=== PATIENT | male | born 1970 | race Caucasian/White ===

== ENCOUNTER 2024-05-03 09:20 | Inpatient (IN) | payer OTHER, MEDICAID, SELFPAY ==
[2024-05-03] VITALS (9 sets, daily range): BP systolic 128–156; BP diastolic 69–91; PULSE 87–101; RESP 17–18; TEMP 36.6–37.2; O2SAT 96–98; BMI 29.0; BMI 29.3
--- NOTE | 2024-05-03 09:50 | ED_ITS ---
HPI - Skin/Abscess/Foreign Bdy 2 General: Chief complaint: Skin/Abscess/Foreign Body Stated complaint: insect bite infection Time Seen by Provider: 05/03/24 09:40 History of Present Illness: 53-year-old male presents emergency room with a rash. Earlier this week he was bitten by an insect became red and inflamed he was seen at walk-in clinic and started on Bactrim. Despite this it continues to get worse. Painful burning rash concentrated in the left lateral chest wall in the posterior calf. Rashes disseminated throughout the trunk as well but not as concentrated as the above- mentioned areas. Patient denies any fever sweats chills nausea or vomiting. Associated symptoms: Reports fever(s); Deny chills Related Data Allergies Allergy/AdvReac Type Severity Reaction Status Date / Time Penicillins Allergy ALGY-Hives Verified 05/03/24 09:36 Review of Systems 2 Const: Reports: fever(s); Denies: chills Card: Denies: chest pain Resp: Denies: dyspnea GI: Denies: abdominal pain : Denies: dysuria, urinary frequency or urinary urgency Musc: Denies: neck pain or back pain Skin/Breast: Denies: rash Physical Exam 2 Const: COMMON NORMALS: no acute distress GENERAL APPEARANCE: cooperative and comfortable ORIENTATION/CONSCIOUSNESS: Yes awake, Yes oriented to person, Yes oriented to place and Yes oriented to time HENMT: COMMON NORMALS: normocephalic, atraumatic and hearing grossly normal bilaterally HEAD & SCALP: normocephalic and atraumatic Resp: COMMON NORMALS: normal respiratory effort, No retractions, No use of accessory muscles and clear to auscultation bilaterally AUSCULTATION: clear to auscultation bilaterally Cardio: COMMON NORMALS: regular rhythm and No murmurs present (Cardio) R ATE: tachycardic RHYTHM: regular rhythm GI: COMMON NORMALS: Soft to palpation and No hepatosplenomegaly present A USCULTATION: Yes normoactive bowel sounds PALPATION: Yes Soft to palpation, No Tenderness to palpation present (GI), No Guarding due to palpation present (GI) and Yes No hepatosplenomegaly present Extremity: COMMON NORMALS: normal to inspection, capillary refill normal, no clubbing, cyanosis or edema, no calf tenderness and no pedal edema Neuro: SENSORIUM/ORIENTATION: Yes oriented to person, Yes oriented to place and Yes oriented to time Skin: OTHER: Reddened micropapular rash disseminated. It is most concentrated in the left axillary region and on the posterior aspect of the left calf. The area on the calf has vesicular changes to it. Course 2 Vital Signs: Vital signs: Vital Signs Temperature 97.9 F 05/03/24 09:32 Pulse Rate 91 05/03/24 11:41 Respiratory Rate 18 05/03/24 09:32 Blood Pressure 137/71 05/03/24 11:41 Pulse Oximetry 97 05/03/24 11:41 Oxygen Delivery Me thod Room Air 05/03/24 09:32 MDM - Skin/Abscess/Foreign Bdy Medicial Decision Making Mild acute kidney injury and staphylococcal skin infection failing Bactrim. He has a history hypertension he is also on lisinopril and a combination of Bactrim and lisinopril no worsening to his kidney function. Patient given IV fluids started on vancomycin will admit discussed with hospitalist. Lab Data 05/03/24 09:40 05/03/24 09:40 Laboratory Results WBC 10.54 10^3/uL (3.29-11.43) 05/03/24 09:40 RBC 4.22 10^6/uL (3.85-5.65) 05/03/24 09:40 Hgb 13.10 g/dL (11.27-16.99) 05/03/24 09:40 Hct 39.1 % (37-53) 05/03/24 09:40 MCV 92.7 fl (82-101) 05/03/24 09:40 MCH 31.0 pg (27-33) 05/03/24 09:40 MCHC 33.5 g/dL (30-55) 05/03/24 09:40 RDW 13.1 % (12.1-15.1) 05/03/24 09:40 Plt Count 268 10^3/cmm (157-399) 05/03/24 09:40 MPV 9.9 fL (7.4-10.4) 05/03/24 09:40 Neut % (Auto) 78.9 % 05/03/24 09:40 Lymph % (Auto) 8.4 % 05/03/24 09:40 [place] % (Auto) 6.6 % 05/03/24 09:40 Eos % (Auto) 4.7 % 05/03/24 09:40 Baso % (Auto) 0.3 % 05/03/24 09:40 Neut # (Auto) 8.30 10^3/uL (1.8-7.7) H 05/03/24 09:40 Lymph # (Auto) 0.9 10^3/uL (0.8-4.8) 05/03/24 09:40 [place] # (Auto) 0.7 10^3/uL (0.2-0.9) 05/03/24 09:40 Eos # (Auto) 0.5 10^3/uL (0.0-0.8) 05/03/24 09:40 Baso # (Auto) 0.0 10^3/uL (0.0-0.1) 05/03/24 09:40 Nucleated RBC % (auto) 0 % 05/03/24 09:40 Nucleated RBCs # 0.0 /100WBC 05/03/24 09:40 ESR 33 mm/hr (0-10) H 05/03/24 09:40 Sodium 138 mmol/L (136-145) 05/03/24 09:40 Potassium 4.6 mmol/L (3.5-5.1) 05/03/24 09:40 Chloride 103 mmol/L (98-107) 05/03/24 09:40 Carbon Dioxide 16 mmol/L (22-29) L 05/03/24 09:40 Anion Gap 23.6 (5-19) H 05/03/24 09:40 BUN 23 mg/dL (6-20) H 05/03/24 09:40 Creatinine 2.1 mg/dL (0.7-1.2) H 05/03/24 09:40 GFR Calculation 33.2 mL/min (90-130) L 05/03/24 09:40 Glucose 92 mg/dL (65-115) 05/03/24 09:40 Calculated Osmolality 289 mOsm/kg (285-295) 05/03/24 09:40 Lactic Acid 1.3 mmol/L (0.5-2.2) 05/03/24 09:40 Calcium 9.6 mg/dL (8.5-10.5) 05/03/24 09:40 Total Bilirubin 0.6 mg/dL (0.15-1.2) 05/03/24 09:40 AST 108 U/L (0-40) H 05/03/24 09:40 ALT 169 U/L (0-41) H 05/03/24 09:40 Alkaline Phosphatase 176 U/L (40-130) H 05/03/24 09:40 Creatine Kinase 192 U/L (39-308) 05/03/24 09:40 Total Protein 8.3 g/dL (6.6-8.7) 05/03/24 09:40 Albumin 4.4 g/dL (3.5-5.2) 05/03/24 09:40 Globulin 3.9 g/dL (1.3-4.6) 05/03/24 09:40 Procalcitonin 0.26 ng/mL (0-0.5) 05/03/24 09:40 All radiology interpretation(s) finalized by discharge Discharge Plan Discharge Patient Disposition: Admitted As Inpatient Admit Provider: Ibrahima Ruiz Clinical Impression: Cellulitis, SILVERIO (acute kidney injury) Condition: Stable Coding Level of Care Code ED Director Of Search Engine Marketing for Ghulam Osborne
[2024-05-03 09:57] LABS: Basophils % 0.3 %; Eosinophils # 0.5 10^3/uL (0.0-0.8); Eosinophils % 4.7 %; Hematocrit 39.1 % (37-53); Lymphocytes # 0.9 10^3/uL (0.8-4.8); Lymphocytes % 8.4 %; Mean Corpuscular HGB Conc 33.5 g/dL (30-55); Mean Corpuscular Volume 92.7 fl (82-101); Mean Platelet Volume 9.9 fL (7.4-10.4); Monocytes # 0.7 10^3/uL (0.2-0.9); Monocytes % 6.6 %; Neutrophils % 78.9 %; Nucleated Red Blood Cells % 0 %; Platelet Count 268 10^3/cmm (157-399); Red Blood Count 4.22 10^6/uL (3.85-5.65); Red Cell Distribution Width 13.1 % (12.1-15.1); White Blood Count 10.54 10^3/uL (3.29-11.43)
[2024-05-03 10:11] LABS: Alanine Aminotransferase 169 U/L (0-41); Albumin Level 4.4 g/dL (3.5-5.2); Alkaline Phosphatase 176 U/L (40-130); Blood Urea Nitrogen 23 mg/dL (6-20); Calcium 9.6 mg/dL (8.5-10.5); Carbon Dioxide 16 mmol/L (22-29); Chloride 103 mmol/L (98-107); Globulin 3.9 g/dL (1.3-4.6); Glomerular Filtration Rate 33.2 mL/min (90-130); Glucose 92 mg/dL (65-115); Osmolality Calculated 289 mOsm/kg (285-295); Sodium 138 mmol/L (136-145); Total Bilirubin 0.6 mg/dL (0.15-1.2); Total Protein 8.3 g/dL (6.6-8.7)
[2024-05-03 10:12] LABS: Lactic Sepsis W/Reflex 1.3 mmol/L (0.5-2.2)
[2024-05-03] MEDS: vancomycin 1,000 MG in sodium chloride 0.9% 250 ML 250 MG IV (10:17)
[2024-05-03] MEDS: sodium chloride 0.9% 1,000 ML 999 ML IV ×2 (10:17→11:20)
[2024-05-03 10:18] LABS: Anion Gap 23.6 (5-19); Aspartate Amino Transferase 108 U/L (0-40); Potassium 4.6 mmol/L (3.5-5.1)
--- NOTE | 2024-05-03 11:03 | USR_ITS ---
PROCEDURE INFORMATION: Exam: US Duplex Left Lower Extremity Veins, Limited Exam date and time: 05/03/2024 2:33 PM Age: 53 years old Clinical indication: Edema, localized; Lower extremity, left; Additional info: Swelling TECHNIQUE: Imaging protocol: Real-time duplex ultrasound of the left extremity with 2-D may scale, color Doppler flow and spectral waveform analysis including responses to compression and other maneuvers (when performed) with image documentation. Limited exam focused on the left lower extremity veins. COMPARISON: No relevant prior studies available. FINDINGS: Left deep veins: Unremarkable. The common femoral, femoral, proximal profunda femoral and popliteal veins are patent without thrombus. Normal Doppler waveforms. Normal compressibility and/or augmentation response. Superficial veins: Greater saphenous vein at the saphenofemoral junction is patent without thrombus. Soft tissues: Unremarkable. US/CV venous duplex [facility] [id number] IMPRESSION: No evidence of deep vein thrombosis.
[2024-05-03 11:29] LABS: Erythrocyte Sedimentation Rate 33 mm/hr (0-10)
[2024-05-03 11:33] LABS: Creatine Phosphokinase 192 U/L (39-308)
[2024-05-03 11:39] LABS: Procalcitonin 0.26 ng/mL (0-0.5)
--- NOTE | 2024-05-03 12:11 | USR_ITS ---
PROCEDURE INFORMATION: Exam: US Left Limited Joint or Other Non-Vascular Extremity Structure Exam date and time: 05/03/2024 2:43 PM Age: 53 years old Clinical indication: Swelling; Calf; Left; Additional info: Left calf, look for abscess TECHNIQUE: Imaging protocol: US left limited joint or other nonvascular extremity structure. Real-time ultrasound with image documentation. COMPARISON: [place] [id number] 05/03/2024 2:33 PM FINDINGS: Soft tissues: Unremarkable. No loculated collections. Other findings: Examination of the left calf demonstrates subcutaneous edema with no evidence of soft tissue mass or fluid collection. US/US soft tissue/extremity [id number] IMPRESSION: No abscess noted
--- NOTE | 2024-05-03 12:11 | PM.HP ---
Providers/Chief Complaint Admitting Physician: Ibrahima Ruiz MD Chief Complaint: insect bite infection History of Present Illness Cory Mccarthy is a 53 year old male with a past medical history of hypertension, hyperlipidemia,, GERD, who presents [facility] for a rash, pain, after spider bite. Patient tells me that earlier on this week, he had a bug bite, on his left chest/flank, it was erythematous, had slight drainage, so he presented to his walk-in clinic and was placed on Bactrim. He tells me that the rash was pruritic painful, burning. But the rash on his left lateral chest mostly has resolved, but now what he is developed is more than diffuse disseminated rash, on his abdomen, on his back, bilateral legs,. Over the last 24 hours he has developed a dense rash, with erythema, swelling, tenderness, over his left calf. Denies any recent injuries to his left calf. No recent travel. He is not exactly sure which bug bit him, he is not sure if if it was a brown recluse spider bite or a black spider, or a tick bite. Does report fatigue, malaise, chills, diffuse pain Review of Systems Const: Reports: body aches, fatigue and malaise Card: Denies: chest pain Resp: Denies: dyspnea Neuro: Denies: headache(s) or numbness in extremities Medications/Allergies Allergies Allergy/AdvReac Type Severity Reaction Status Date / Time Penicillins Allergy ALGY-Hives Verified 05/03/24 09:36 Vitals/I&O/Wt Last Vital Signs Temp 97.9 F 05/03/24 09:32 Pulse 91 05/03/24 11:41 Resp 18 05/03/24 09:32 BP 137/71 05/03/24 11:41 Pulse Ox 97 05/03/24 11:41 O2 Del Method Room Air 05/03/24 09:32 05/02/24 05/03/24 05/03/24 22:59 06:59 14:59 Intake Total 2064.85 / 2064.85 Balance 2064. / 2064. Weight last 48 hrs Weight 81.647 kg Physical Exam Const: COMMON NORMALS: no acute distress and patient oriented x3 HENMT: COMMON NORMALS: normocephalic HEAD & SCALP: normocephalic Neck/C-Spine: COMMON NORMALS: no JVD Resp: COMMON NORMALS: normal respiratory effort, No retractions, No use of accessory muscles and clear to auscultation bilaterally AUSCULTATION: clear to auscultation bilaterally Cardio: COMMON NORMALS: no JVD, regular rate, regular rhythm, S1 normal heart sound present and S2 normal heart sound present RATE: regular rate RHYTHM: regular rhythm HEART SOUNDS: S1 normal heart sound present and S2 normal heart sound present GI: COMMON NORMALS: Normal to inspection, nondistended, normoactive bowel sounds present, Soft to palpation and non-tender Extremity: COMMON NORMALS: no pedal edema Neuro: COMMON NORMALS: patient oriented x3, CN's II-XII intact bilaterally, moves all extremities and no focal motor deficits Psych: COMMON NORMALS: mental status grossly normal Skin: OTHER: Rash, left chest: Measuring 1 x 1 cm, slight erythema slight tenderness Diffuse maculopapular rash, nonblanching, abdomen, back, bilateral lower extremity Left calf erythema, swelling, tenderness, throughout the calf, poorly demarcated borders, maculopapular, with papular features that have white tipped, nondraining Data 05/03/24 09:40 05/03/24 09:40 Micro: Microbiology 05/03/24 09:40 Blood Culture - Preliminary Blood SPECIMEN COLLECTED 05/03/24 09:40 Blood Culture - Preliminary Blood SPECIMEN COLLECTED A&P Assessment and plan (1) SILVERIO (acute kidney injury): (2) Cellulitis: (3) Bug bite: Plan Left calf -cellulitis -With systemic symptoms -Ultrasound for analysis underlying abscess, venous ultrasound for DVT -Continue vancomycin -Continue meropenem Bug bite -With systemic symptoms -CPK -Monitor Bactrim, lisinopril, with SILVERIO -Possible dress syndrome? -Monitor -IV fluids SILVERIO -IV fluids Transaminitis, monitor, GGT, lipase Attestations Medical Necessity Statement*: Patient requires hospitalization for left calf, cellulitis, bug bite, SILVERIO, dress syndrome, transaminitis, inpatient, greater than 2 midnights Diagnoses SILVERIO (acute kidney injury) N17.9 Cellulitis L03.90 Bug bite W57.XXXA
[2024-05-03] MEDS: pantoprazole 40 mg SDV IVP (12:37)
[2024-05-03] MEDS: sodium chloride 0.9% 1,000 ML 100 ML IV ×2 (12:37→22:34)
[2024-05-03] MEDS: meropenem 500 mg SDV IVP ×2 (12:37→19:41)
[2024-05-03 12:51] LABS: Immunoglobulin IGA 186 mg/dL (70-400); Lipase 99 U/L (13-60); Thyroid Stimulating Hormone 1.33 uIU/mL (0.27-4.20)
[2024-05-03 13:07] LABS: Gamma Glutamyl Transferase 478 U/L (8-61)
[2024-05-03 13:09] LABS: Estmated Average Glucose 108; Hemoglobin A1C 5.4 % (4.0-6.0)
[2024-05-03] MEDS: enoxaparin 40 mg/0.4 mL Syringe SUBCUT (17:12)
[2024-05-03] MEDS: acetaminophen 325 mg Tablet 650 MG PO ×2 (17:12→23:17)
[2024-05-03 17:30] LABS: Reflex FDPQ test REFLEX FDP QUEST TES
[2024-05-03 17:49] LABS: INR 0.93 (0.8-1.2)
[2024-05-03 17:50] LABS: Partial Thromboplastin Time 29.3 SECONDS (23.9-36.7)
[2024-05-03 17:51] LABS: Fibrinogen 759 mg/dL (174-498)
[2024-05-03 17:53] LABS: D Dimer 0.94 ug/mLFEU (0-0.59)
[2024-05-04] VITALS (8 sets, daily range): BP systolic 117–150; BP diastolic 68–88; PULSE 78–91; RESP 13–18; TEMP 36.8–37; O2SAT 95–97
[2024-05-04] MEDS: meropenem 500 mg SDV IVP ×3 (04:06→19:44)
[2024-05-04] MEDS: vancomycin 1,000 MG in sodium chloride 0.9% 250 ML 250 MG IV ×2 (04:06→16:13)
[2024-05-04 04:24] LABS: Basophils % 0.2 %; Eosinophils # 0.5 10^3/uL (0.0-0.8); Eosinophils % 5.3 %; Hematocrit 35.6 % (37-53); Lymphocytes % 10.8 %; Mean Corpuscular HGB Conc 32.9 g/dL (30-55); Mean Corpuscular Hemoglobin 30.6 pg (27-33); Mean Corpuscular Volume 93.2 fl (82-101); Mean Platelet Volume 8.7 fL (7.4-10.4); Monocytes # 0.7 10^3/uL (0.2-0.9); Monocytes % 6.8 %; Neutrophils % 75.5 %; Nucleated Red Blood Cells % 0 %; Platelet Count 239 10^3/cmm (157-399); Red Blood Count 3.82 10^6/uL (3.85-5.65); Red Cell Distribution Width 13.1 % (12.1-15.1); White Blood Count 9.67 10^3/uL (3.29-11.43)
[2024-05-04 04:48] LABS: Alanine Aminotransferase 137 U/L (0-41); Alkaline Phosphatase 159 U/L (40-130); Anion Gap 19.4 (5-19); Aspartate Amino Transferase 73 U/L (0-40); Blood Urea Nitrogen 19 mg/dL (6-20); Calcium 8.8 mg/dL (8.5-10.5); Carbon Dioxide 18 mmol/L (22-29); Chloride 108 mmol/L (98-107); Creatinine Clr Calc Pharmacy 61.5401; Globulin 3.1 g/dL (1.3-4.6); Glucose 93 mg/dL (65-115); Osmolality Calculated 294 mOsm/kg (285-295); Potassium 4.4 mmol/L (3.5-5.1); Sodium 141 mmol/L (136-145); Total Bilirubin 0.8 mg/dL (0.15-1.2); Total Protein 7.1 g/dL (6.6-8.7)
[2024-05-04] MEDS: acetaminophen 325 mg Tablet 650 MG PO ×3 (05:26→20:05)
[2024-05-04] MEDS: sodium chloride 0.9% 1,000 ML 100 ML IV ×2 (08:05→20:11)
[2024-05-04 10:53] LABS: C Reactive Protein 163.4 mg/L (0.0-4.9)
[2024-05-04 10:55] LABS: Erythrocyte Sedimentation Rate 28 mm/hr (0-10)
[2024-05-04 10:59] LABS: Procalcitonin 0.18 ng/mL (0-0.5)
--- NOTE | 2024-05-04 11:46 | PHA.VACGOAL ---
Vancomycin Goal - Therapy Day of therpy:: Day 2 Actual body weight (kg): 182 lb - Data Labs: WBC 9.67 10^3/uL (3.29-11.43) 05/04/24 04:05 RBC 3.82 10^6/uL (3.85-5.65) L 05/04/24 04:05 Hgb 11.70 g/dL (11.27-16.99) 05/04/24 04:05 Hct 35.6 % (37-53) L 05/04/24 04:05 MCV 93.2 fl (82-101) 05/04/24 04:05 MCH 30.6 pg (27-33) 05/04/24 04:05 MCHC 32.9 g/dL (30-55) 05/04/24 04:05 RDW 13.1 % (12.1-15.1) 05/04/24 04:05 Sodium 141 mmol/L (136-145) 05/04/24 04:05 Potassium 4.4 mmol/L (3.5-5.1) 05/04/24 04:05 Chloride 108 mmol/L (98-107) H 05/04/24 04:05 Carbon Dioxide 18 mmol/L (22-29) L 05/04/24 04:05 Anion Gap 19.4 (5-19) H 05/04/24 04:05 BUN 19 mg/dL (6-20) 05/04/24 04:05 Creatinine 1.4 mg/dL (0.7-1.2) H 05/04/24 04:05 GFR Calculation 53.0 mL/min (90-130) L 05/04/24 04:05 Treatment plan:: change (SCr decreased from 2.1 to 1.4. Adjusted vancomycin dose to 1,000 mg q12h.)
[2024-05-04] MEDS: pantoprazole 40 mg SDV IVP (12:06)
[2024-05-04 13:34] LABS: Anion Gap 17.7 (5-19); Blood Urea Nitrogen 17 mg/dL (6-20); Calcium 9.2 mg/dL (8.5-10.5); Carbon Dioxide 20 mmol/L (22-29); Chloride 105 mmol/L (98-107); Creatinine Clr Calc Pharmacy 66.2739; Glomerular Filtration Rate 57.7 mL/min (90-130); Glucose 159 mg/dL (65-115); Osmolality Calculated 291 mOsm/kg (285-295); Potassium 4.7 mmol/L (3.5-5.1); Sodium 138 mmol/L (136-145)
[2024-05-04] MEDS: enoxaparin 40 mg/0.4 mL Syringe SUBCUT (16:13)
--- NOTE | 2024-05-04 16:50 | P.PN_ITS ---
Vitals/I&O/Wt Last Vital Signs Temp 98.6 F 05/04/24 15:52 Pulse 91 05/04/24 15:52 Resp 17 05/04/24 15:52 BP 146/86 05/04/24 15:52 Pulse Ox 95 05/04/24 15:52 O2 Del Method Room Air 05/04/24 15:52 05/04/24 05/04/24 05/04/24 06:59 14:59 22:59 Intake Total 610 / 4870.85 1671.667 / 1671.667 Balance 610 / 4870.85 1671.667 / 1671.667 Weight last 48 hrs Weight 82.554 kg Weight 82.554 kg Weight 81.647 kg Physical Exam 2 Const: COMMON NORMALS: no acute distress and patient oriented x3 Resp: COMMON NORMALS: normal respiratory effort, No retractions, No use of accessory muscles and clear to auscultation bilaterally AUSCULTATION: clear to auscultation bilaterally Cardio: COMMON NORMALS: regular rate, regular rhythm, S1 normal heart sound present and S2 normal heart sound present RATE: regular rate RHYTHM: r egular rhythm HEART SOUNDS: S1 normal heart sound present and S2 normal heart sound present GI: COMMON NORMALS: Normal to inspection, nondistended, normoactive bowel sounds present and non-tender Extremity: COMMON NORMALS: no pedal edema NARRATIVE EXTREMITY EXAM: left leg area of erythema has spread beyond marked borders, but patient has developed pustular pappules, bug bite on left chest, has more erythema, no drainage has maculopapular rash on bilateral legs Neuro: COMMON NORMALS: patient oriented x3 Psych: COMMON NORMALS: mental status grossly normal Data 05/04/24 04:05 05/04/24 13:03 Micro: Microbiology 05/03/24 09:40 Blood Culture - Preliminary Blood NEGATIVE TO DATE 05/03/24 09:40 Blood Culture - Preliminary Blood NEGATIVE TO DATE A&P Assessment and plan (1) SILVERIO (acute kidney injury): (2) Cellulitis: (3) Bug bite: Plan Left calf -cellulitis -procal WNL -crp 163.4 -esr 28 -With systemic symptoms -Ultrasound for analysis underlying abscess No abscess noted, venous ultrasound for DVT negative -Continue vancomycin -Continue meropenem Bug bite -With systemic symptoms -CPK WNL -Monitor Bactrim, lisinopril, with SILVERIO -Possible dress syndrome? -Monitor -IV fluids SILVERIO -IV fluids Transaminitis, monitor, GGT, lipase Attestations 2 Medical Necessity Statement*: patient requires hospitalization for left calf cellulitis Diagnoses SILVERIO (acute kidney injury) N17.9 Cellulitis L03.90 Bug bite W57.XXXA
--- NOTE | 2024-05-04 17:28 | PC.NURSE ---
Pt refused CT of left lower leg against recommendation of this nurse and Dr. Ruiz. Pt would like to speak with infectious disease Dr. Ferrera before proceeding. This nurse notified Dr. Ruiz via voalte at [phone].
[2024-05-04] MEDS: doxycycline 100 mg Tablet PO (18:20)
[2024-05-05] VITALS (7 sets, daily range): BP systolic 137–155; BP diastolic 61–89; PULSE 65–95; RESP 16–17; TEMP 36.7–36.9; O2SAT 97–98
[2024-05-05 03:42] LABS: Vancomycin Trough 11.8 ug/mL (10-15)
[2024-05-05] MEDS: meropenem 500 mg SDV IVP ×3 (04:11→19:58)
[2024-05-05] MEDS: vancomycin 1,000 MG in sodium chloride 0.9% 250 ML 250 MG IV ×2 (04:11→16:25)
[2024-05-05] MEDS: sodium chloride 0.9% 1,000 ML 100 ML IV ×2 (05:32→16:02)
--- NOTE | 2024-05-05 07:55 | PM.CONSULT ---
Providers/Reason For Consult Consulting Physician/Specialty*: Patricia Ferrera MD / Infectious disease Reason for Consult*: Rash, carbuncle Requesting Physician: Ibrahima Ruiz MD Attending Physician: Ibrahima Ruiz MD History of Present Illness History of Present Illness Cory Mccarthy is a 53 year old male with a past medical history of hypertension, hyperlipidemia,, GERD, who presents [facility] for a rash and painful swelling localizing to his left calf. He was in his usual state of health until earlier this week when he felt a bite over his left lateral chest wall. He is unsure if this was a spider bite versus another arthropod or wasp. Here in the area was immediately pruritic and painful. Over the next day or 2 his rash started to spread diffusely, per his description appears to have been a maculopapular rash, however thereafter changes started localizing to the left calf. His left calf became acutely painful and developed multiple draining foci. He has not noticed drainage any other site. He initially presented to the walk-in clinic where he was prescribed Bactrim DS twice daily for his rash. He had been taking it for about 24 hours prior to coming into the hospital. He has additionally used Benadryl. Had not noticed any significant difference thus far. Review of systems is positive for chills over the past week. He has not checked his temperature for an objective assessment. No other animal exposure. Has not used any hot tubs recently. No other water activities. No history of recurrent skin and soft tissue infections. No history of recurrent MRSA infections. He is around preschool-aged children, however they have not been sick recently. Patient works in our radiology department. No recent URI symptoms. No cough. He is currently on treatment with IV meropenem and vancomycin Review of Systems General: Reports: 10 or more systems reviewed and unremarkable except in HPI and below Const: Reports: chills and body aches; Denies: fever(s) Eyes: Denies: change in vision, blurry vision or photophobia ENMT: Reports: hoarseness; Denies: throat pain, enlarged tonsils, odynophagia or nasal congestion Card: Denies: chest pain, palpitations, irregular heart rhythm, edema, swelling of feet/ankles, lightheadedness, pre-syncope, dyspnea on exertion or orthopnea Resp: Denies: dyspnea, productive cough, non-productive cough, wheezing, stridor, pain on inspiration, change in phlegm color, hemoptysis or chest congestion GI: Denies: abdominal pain, nausea, vomiting, hematemesis, coffee ground emesis, dysphagia, heartburn, diarrhea, constipation, GI cramping, change in stool character, hematochezia or melena : Denies: flank pain, dysuria, urinary frequency, urinary urgency, urinary hesitancy or hematuria Musc: Denies: neck pain, back pain, extremity pain, joint swelling, joint warmth or deformity Neuro: Denies: headache(s), numbness in extremities, weakness in extremities, sensory changes, difficulty walking, frequent falls, dizziness, vertigo, behavioral changes, Slurred speech present or seizure-like activity Psych: Denies: anxiety, depression, suicidal ideation or homicidal ideation Endo: Denies: polyuria, polydipsia, tired all the time, cold intolerance or hot flashes [place]/Lymph: Denies: easy bruising or easy bleeding Medications/Allergies Home Medications Medication Instructions Recorded Confirmed Last Taken Type amlodipine 5 mg tablet 5 mg PO DAILY 05/03/24 05/03/24 Unknown History atorvastatin 40 mg tablet 40 mg PO DAILY 05/03/24 05/03/24 Unknown History lisinopril 40 mg tablet 40 mg PO DAILY 05/03/24 05/03/24 Unknown History omeprazole 20 mg capsule,delayed 20 mg PO DAILY 05/03/24 05/03/24 Unknown History release sulfamethoxazole 800 1 tab PO BID 05/03/24 05/03/24 Unknown History mg-trimethoprim 160 mg tablet (Bactrim DS) Allergies Allergy/AdvReac Type Severity Reaction Status Date / Time Penicillins Allergy ALGY-Hives Verified 05/03/24 09:36 Current Medications Generic Name Dose Route Start Last Admin Trade Name Freq PRN Reason Stop Dose Admin Acetaminophen 650 mg 05/03/24 11:56 05/04/24 20:05 Acetaminophen 325 Mg Tablet PO 650 mg Q6H PRN Administration Mild/Mod Pain Or Temp >/= 101 Doxycycline Monohydrate 100 mg 05/04/24 18:00 05/04/24 18:20 Doxycycline 100 Mg Tablet PO 100 mg BID RODO Administration Protocol Enoxaparin Sodium 40 mg 05/04/24 17:00 05/04/24 16:13 Enoxaparin 40 Mg/0.4 Ml Syringe SUBCUT 40 mg Q24H RODO Administration Sodium Chloride 1,000 mls @ 100 mls/hr 05/03/24 11:56 05/05/24 05:32 Sodium Chloride 0.9% IV 100 mls/hr .Q10H RODO Administration Vancomycin HCl 1,000 mg/ 250 mls @ 250 mls/hr 05/04/24 16:00 05/05/24 05:30 Sodium Chloride IV Infused Q12H RODO Infusion Meropenem 500 mg 05/03/24 12:30 05/05/24 04:11 Meropenem 500 Mg Sdv IVP 500 mg Q8H RODO Administration Protocol Pantoprazole Sodium 40 mg 05/03/24 13:00 05/04/24 12:06 Pantoprazole 40 Mg Sdv IVP 40 mg Q24H RODO Administration Vitals/I&O/Wt Last Vital Signs Temp 98.0 F 05/05/24 04:00 Pulse 68 05/05/24 06:00 Resp 16 05/05/24 04:00 BP 146/61 05/05/24 04:00 Pulse Ox 98 05/05/24 04:00 O2 Del Method Room Air 05/05/24 04:00 05/04/24 05/05/24 05/05/24 22:59 06:59 14:59 Intake Total 1730 / 3401.667 1250 / 4651.667 Balance 1730 / 3401.667 1250 / 4651.667 Weight last 48 hrs Weight 84.958 kg Weight 82.554 kg Weight 82.554 kg Weight 81.647 kg Physical Exam Narrative: General: No acute distress, AO x3 HEENT: PERRLA, pupils bilaterally equal and reactive, pallors not present Chest: Normal vesicular breath sounds, no added sounds, equal good air entry bilaterally CVS: S1-S2 regular, no murmurs, no tachycardia, no gallops, no rubs Abdomen: Soft, nontender, no organomegaly, bowel sounds present Neuro: No focal deficits, no facial deformity, AO x3, power 5/5 in all limbs Extremities: See attached pictures. Patient has a diffuse maculopapular rash affecting bilateral arms, bilateral legs extending from thigh down to feet, more localized carbuncle affecting the left calf, pictures attached. Around the left lateral chest wall there a small scab, possibly medical field representative of the bite johann from unknown arthropod. left calf Data 05/06/24 04:05 05/06/24 04:05 Micro: Microbiology 05/03/24 09:40 Blood Culture - Preliminary Blood NEGATIVE TO DATE 05/03/24 09:40 Blood Culture - Preliminary Blood NEGATIVE TO DATE A&P Assessment and plan (1) Scalded skin syndrome: (2) Carbuncle: Plan Overall clinical impression is that of possibility of staphylococcal scalded skin syndrome. It appears the events may have been incited by an unknown arthropod bite. Thereafter quickly developed a generalized rash which has been worsening during course of the week. Thereafter changes appear to be more localized over the left calf now, appearing to be carbuncle in appearance. No direct trauma or bite at the site of left calf. Possibility of toxin mediated disease such as SSSS versus group A streptococcal infection. less likely drug eruption given that symptoms appear to have predated initiation of Bactrim. No eosinophilia on peripheral labs, less likely dress syndrome. check MRSA nasal screen and GAS phayngeal swab consider surgery consultation, skin biopsy if no improvement less likely disseminated herpes/zoster, will consider HSV and VZV PCR from skin lesion if no improvement Continue iv vancomycin and meropenem Will follow-up with results of pending testing Consult Attestations Medical Necessity Statement: Per admitting, needs IV antibiotics Coding Level of Care Code Acute Code for Chg Fwd High MDM includes number and complexity of problems actively addressed during encounter, amount and/or complexity of data reviewed/ordered and described risk of complication, morbidity or mortality of management as documented Diagnoses Scalded skin syndrome L00 Carbuncle L02.93
[2024-05-05] MEDS: acetaminophen 325 mg Tablet 650 MG PO ×2 (08:04→16:36)
[2024-05-05] MEDS: doxycycline 100 mg Tablet PO ×2 (08:04→17:32)
--- NOTE | 2024-05-05 10:20 | P.CONIM_ITS ---
Providers/Reason For Consult 2 Consulting Physician/Specialty*: General surgery Reason for Consult*: Left leg cellulitis Attending Physician: Ibrahima Ruiz MD History of Present Illness History of Present Illness Cory Mccarthy is a 53 year old male who presents for evaluation of a body rash after an insect bite, since then he also developed the rash on the left leg at the level of the cold with significant crusting and separation. I was consulted for evaluation of possible need of drainage Interval if there is any deep abscess that needs an immediate attention. Per patient report he is feeling better no significant pain at the level of the left cuff, has noted some separation from the wound but the area appears to be improving. Review of Systems 2 General: Reports: 10 or more systems reviewed and unremarkable except in HPI and below Medications/Allergies Home Medications Medication Instructions Recorded Confirmed Last Taken Type amlodipine 5 mg tablet 5 mg PO DAILY 05/03/24 05/03/24 Unknown History atorvastatin 40 mg tablet 40 mg PO DAILY 05/03/24 05/03/24 Unknown History lisinopril 40 mg tablet 40 mg PO DAILY 05/03/24 05/03/24 Unknown History omeprazole 20 mg capsule,delayed 20 mg PO DAILY 05/03/24 05/03/24 Unknown History release sulfamethoxazole 800 1 tab PO BID 05/03/24 05/03/24 Unknown History mg-trimethoprim 160 mg tablet (Bactrim DS) Allergies Allergy/AdvReac Type Severity Reaction Status Date / Time Penicillins Allergy ALGY-Hives Verified 05/03/24 09:36 Current Medications Generic Name Dose Route Start Last Admin Trade Name Freq PRN Reason Stop Dose Admin Acetaminophen 650 mg 05/03/24 11:56 05/05/24 08:04 Acetaminophen 325 Mg Tablet PO 650 mg Q6H PRN Administration Mild/Mod Pain Or Temp >/= 101 Doxycycline Monohydrate 100 mg 05/04/24 18:00 05/05/24 08:04 Doxycycline 100 Mg Tablet PO 100 mg BID RODO Administration Protocol Enoxaparin Sodium 40 mg 05/04/24 17:00 05/04/24 16:13 Enoxaparin 40 Mg/0.4 Ml Syringe SUBCUT 40 mg Q24H RODO Administration Sodium Chloride 1,000 mls @ 100 mls/hr 05/03/24 11:56 05/05/24 05:32 Sodium Chloride 0.9% IV 100 mls/hr .Q10H RODO Administration Vancomycin HCl 1,000 mg/ 250 mls @ 250 mls/hr 05/04/24 16:00 05/05/24 05:30 Sodium Chloride IV Infused Q12H RODO Infusion Meropenem 500 mg 05/03/24 12:30 05/05/24 04:11 Meropenem 500 Mg Sdv IVP 500 mg Q8H RODO Administration Protocol Pantoprazole Sodium 40 mg 05/03/24 13:00 05/04/24 12:06 Pantoprazole 40 Mg Sdv IVP 40 mg Q24H RODO Administration Vitals/I&O/Wt Last Vital Signs Temp 98.0 F 05/05/24 08:00 Pulse 95 05/05/24 08:00 Resp 17 05/05/24 08:00 BP 145/78 05/05/24 08:00 Pulse Ox 97 05/05/24 08:00 O2 Del Method Room Air 05/05/24 08:00 05/04/24 05/05/24 05/05/24 22:59 06:59 14:59 Intake Total 1730 / 3401.667 1250 / 4651.667 Balance 1730 / 3401.667 1250 / 4651.667 Weight last 48 hrs Weight 187 lb 4.8 oz Weight 182 lb Weight 182 lb Physical Exam 2 Extremity: NARRATIVE EXTREMITY EXAM: On the left lower extremity there is a large area of cellulitis with superficial blistering concerning for the possibility of a carbuncle, there is no induration in the underlying tissue there is no fluctuance or any other symptoms concerning for abscess. Data 05/04/24 04:05 05/04/24 13:03 Micro: Microbiology 05/03/24 09:40 Blood Culture - Preliminary Blood NEGATIVE TO DATE 05/03/24 09:40 Blood Culture - Preliminary Blood NEGATIVE TO DATE A&P Assessment and plan (1) Cellulitis: Plan 53-year-old male with left leg cellulitis after an insect bite. Patient is doing well, agree with primary team plan continue IV antibiotics and continue to monitor the left lower extremity. Physical examination is negative for abscess or any drainable fluid collections, there is only superficial crusting and separation that is unlikely to need any surgical intervention. I will continue to monitor on a daily basis while the patient is in-house, likely erythema will start to improve and crusting will eventually flake off. I discussed with the patient my findings he is agreeable with the plan I Informed him that if clinical status changes he may require incision of drainage of the leg and he is understanding. Coding Level of Care Code 50037 Diagnoses Cellulitis L03.90
[2024-05-05] MEDS: pantoprazole 40 mg SDV IVP (11:42)
[2024-05-05 13:38] LABS: Lymes IGG WB <0.90 index
[2024-05-05 13:38] LABS: Lyme AB Screen <0.90 index
--- NOTE | 2024-05-05 15:13 | P.PN_ITS ---
Subjective 2 Subjective: Patient was seen this morning, no fevers, no chills, area of purulent drainage, left calf, is starting to form an area of organization, no fevers, no chills, Vitals/I&O/Wt Last Vital Signs Temp 98.3 F 05/05/24 12:00 Pulse 93 05/05/24 12:00 Resp 17 05/05/24 12:00 BP 137/81 05/05/24 12:00 Pulse Ox 97 05/05/24 12:00 O2 Del Method Room Air 05/05/24 12:00 05/05/24 05/05/24 05/05/24 06:59 14:59 22:59 Intake Total 1250 / 4651.667 1080 / 1080 Balance 1250 / 4651.667 1080 / 1080 Weight last 48 hrs Weight 84.958 kg Weight 82.554 kg Physical Exam 2 Const: COMMON NORMALS: no acute distress and patient oriented x3 Resp: COMMON NORMALS: normal respiratory effort, No retractions, No use of accessory muscles and clear to auscultation bilaterally AUSCULTATION: clear to auscultation bilaterally Cardio: COMMON NORMALS: regular rate, regular rhythm, S1 normal heart sound present and S2 normal heart sound present RATE: regular rate RHYTHM: r egular rhythm HEART SOUNDS: S1 normal heart sound present and S2 normal heart sound present GI: COMMON NORMALS: Normal to inspection, nondistended, normoactive bowel sounds present and non-tender Extremity: COMMON NORMALS: no pedal edema NARRATIVE EXTREMITY EXAM: Left calf, 5 x 5 cm area of erythema, with areas of mucopurulent drainage Neuro: COMMON NORMALS: patient oriented x3 Psych: COMMON NORMALS: mental status grossly normal Data 05/04/24 04:05 05/04/24 13:03 Micro: Microbiology 05/04/24 10:06 Anaerobic Culture - Preliminary Leg - Left Wound Culture - Preliminary A&P Assessment and plan (1) SILVERIO (acute kidney injury): (2) Cellulitis: (3) Bug bite: Plan Left calf -cellulitis, carbuncle, staphylococcal scalded skin syndrome -procal WNL -crp 163.4 -esr 28 -With systemic symptoms -Ultrasound for analysis underlying abscess No abscess noted, venous ultrasound for DVT negative -Continue vancomycin -Continue meropenem -Continue wound care -General Surgery consulted -Infectious disease consulted Bug bite -With systemic symptoms -CPK WNL -Monitor Bactrim, lisinopril, with SILVERIO -Possible dress syndrome? -Monitor -IV fluids SILVERIO -IV fluids Transaminitis, monitor, GGT, lipase Plan for today spoke to infectious disease, consult general surgery continue IV antibiotics, recheck BMP Attestations 2 Medical Necessity Statement*: Patient requires hospitalization for left calf cellulitis, carbuncle Diagnoses SILVERIO (acute kidney injury) N17.9 Cellulitis L03.90 Bug bite W57.XXXA
[2024-05-05 15:43] LABS: Anion Gap 19.1 (5-19); Blood Urea Nitrogen 15 mg/dL (6-20); Calcium 8.7 mg/dL (8.5-10.5); Carbon Dioxide 19 mmol/L (22-29); Chloride 106 mmol/L (98-107); Glucose 85 mg/dL (65-115); Osmolality Calculated 288 mOsm/kg (285-295); Potassium 5.1 mmol/L (3.5-5.1); Sodium 139 mmol/L (136-145)
[2024-05-05] MEDS: enoxaparin 40 mg/0.4 mL Syringe SUBCUT (16:25)
[2024-05-05] MEDS: amlodipine 5 mg Tablet PO (21:59)
[2024-05-06] VITALS (11 sets, daily range): BP systolic 136–156; BP diastolic 78–92; PULSE 66–91; RESP 16–20; TEMP 36.4–36.8; O2SAT 97–98; BMI 30.2
[2024-05-06] MEDS: meropenem 500 mg SDV IVP ×2 (04:02→12:20)
[2024-05-06] MEDS: vancomycin 1,000 MG in sodium chloride 0.9% 250 ML 250 MG IV ×2 (04:03→16:09)
[2024-05-06 04:27] LABS: Basophils # 0.1 10^3/uL (0.0-0.1); Basophils % 0.5 %; Eosinophils # 0.7 10^3/uL (0.0-0.8); Eosinophils % 6.8 %; Hematocrit 36.2 % (37-53); Lymphocytes # 1.8 10^3/uL (0.8-4.8); Lymphocytes % 18.8 %; Mean Corpuscular HGB Conc 32.9 g/dL (30-55); Mean Corpuscular Hemoglobin 30.7 pg (27-33); Mean Corpuscular Volume 93.5 fl (82-101); Mean Platelet Volume 8.6 fL (7.4-10.4); Monocytes # 0.8 10^3/uL (0.2-0.9); Monocytes % 8.4 %; Neutrophils # 5.87 10^3/uL (1.8-7.7); Neutrophils % 60.6 %; Nucleated Red Blood Cells % 0 %; Platelet Count 263 10^3/cmm (157-399); Red Blood Count 3.87 10^6/uL (3.85-5.65); Red Cell Distribution Width 12.6 % (12.1-15.1); White Blood Count 9.71 10^3/uL (3.29-11.43)
[2024-05-06 04:48] LABS: Anion Gap 15.2 (5-19); Blood Urea Nitrogen 12 mg/dL (6-20); Calcium 9.2 mg/dL (8.5-10.5); Carbon Dioxide 23 mmol/L (22-29); Chloride 105 mmol/L (98-107); Glucose 93 mg/dL (65-115); Osmolality Calculated 287 mOsm/kg (285-295); Potassium 4.2 mmol/L (3.5-5.1); Sodium 139 mmol/L (136-145)
--- NOTE | 2024-05-06 07:03 | PM.PN ---
Subjective Subjective: Patient seen at the bedside this morning, doing well, no significant changes in the symptoms of the left lower extremity. Vitals/I&O/Wt Last Vital Signs Temp 98.2 F 05/06/24 05:25 Pulse 66 05/06/24 05:26 Resp 17 05/06/24 05:25 BP 145/83 05/06/24 05:25 Pulse Ox 97 05/06/24 05:25 O2 Del Method Room Air 05/06/24 01:12 05/05/24 05/06/24 05/06/24 22:59 06:59 14:59 Intake Total 3050 / 4130 250 / 4380 Balance 3050 / 4130 250 / 4380 Weight last 48 hrs Weight 187 lb Weight 187 lb 4.8 oz Physical Exam Extremity: NARRATIVE EXTREMITY EXAM: Left lower extremity evaluated, no evidence of abscess no evidence of fluctuance no induration of the subcutaneous tissue, superficially the skin remains erythematous, erythema appears to be decreasing especially on the outline of the marked area. No significant purulence noted this morning Data 05/06/24 04:05 05/06/24 04:05 Micro: Microbiology 05/05/24 10:22 Gram Stain - Final Leg - Left 05/04/24 10:06 Anaerobic Culture - Preliminary Leg - Left Wound Culture - Preliminary A&P Assessment and plan (1) Cellulitis: (2) Carbuncle: (3) Scalded skin syndrome: Plan Patient is showing good progression with antibiotic management does not appear to be forming an abscess or drainable fluid collection, will continue to monitor on the daily basis while the patient is in-house, at this time I do not anticipate the need for surgical intervention. Management will be per primary team Attestations Medical Necessity Statement*: Per primary Coding Level of Care Code Acute Code for [facility] Diagnoses Cellulitis L03.90 Carbuncle L02.93 Scalded skin syndrome L00
[2024-05-06] MEDS: amlodipine 5 mg Tablet PO (07:28)
[2024-05-06] MEDS: doxycycline 100 mg Tablet PO ×2 (07:28→17:20)
[2024-05-06] MEDS: acetaminophen 325 mg Tablet 650 MG PO ×2 (07:31→19:08)
--- NOTE | 2024-05-06 07:58 | PC.PHAR ---
VANCOMYCIN DOSE REVIEWED, IN RANGE TROUGH OF 11.8 DX CELLULITIS RENAL FX STABLE CONTINUE REGIMEN, TO BE REVIEWED DAILY
--- NOTE | 2024-05-06 09:18 | CT_ITS ---
WS: [id number] Contrast-enhanced CT LEFT foot TECHNIQUE: with coronal and sagittal reformatted images. CLINICAL INFORMATION: swelling, pain, staph skin infection at calf COMPARISON: None. DLP: 755.[address] scans at [facility] use at least one of these dose optimization techniques: automated e xposure control; mA and/or kV adjustment per patient size (includes targeted exams where dose is matc hed to clinical indication); or iterative reconstruction. FINDINGS: Diffuse skin thickening and subcutaneous edema LEFT lower leg extending to the foot and ankle compati ble with cellulitis. No evidence of drainable abscess or fluid collection. No evidence of osteomyelit is. Soft tissue edema worse involving the dorsal mid and forefoot. Normal ankle mortise. Normal medial an d lateral malleolus. Normal talar dome. CT/CT foot LT w con [id number] IMPRESSION: 1. Cellulitis with subcutaneous edema and skin thickening involving the foot a nd ankle 2. No drainable abscess or fluid collection.
--- NOTE | 2024-05-06 09:18 | CT_ITS ---
WS: [id number] Contrast-enhanced CT LEFT lower leg TECHNIQUE: Contrast-enhanced CT LEFT lower leg with coronal and sagittal reformatted images. CLINICAL INFORMATION: swelling, pain, staph skin infectin a calf COMPARISON: None. DLP: 755.[address] scans at [facility] use at least one of these dose optimization techniques: automated e xposure control; mA and/or kV adjustment per patient size (includes targeted exams where dose is matc hed to clinical indication); or iterative reconstruction. FINDINGS: Subcutaneous edema in the lower leg extending to the foot and ankle with skin thickening. Findings c ompatible with cellulitis. No evidence of intramuscular abscess. No drainable fluid collections. No evidence of osteomyelitis. CT/CT lower leg LT w con [id number] IMPRESSION: 1. Findings compatible with LEFT lower extremity cellulitis. 2. No evidence of drainable abscess or fluid collection. 3. No evidence of osteomyelitis.
[2024-05-06 09:58] LABS: C Reactive Protein 68.1 mg/L (0.0-4.9); Creatine Phosphokinase 128 U/L (39-308)
[2024-05-06 10:02] LABS: Erythrocyte Sedimentation Rate 24 mm/hr (0-10)
[2024-05-06 10:23] LABS: Lactic Sepsis W/Reflex 1.8 mmol/L (0.5-2.2)
[2024-05-06] MEDS: pantoprazole 40 mg SDV IVP (12:20)
[2024-05-06] MEDS: sodium chloride 0.9% 1,000 ML 50 ML IV (12:21)
[2024-05-06] MEDS: iohexol 350 mg/mL 500 mL Btl (per mL) IV (12:30)
[2024-05-06 13:04] LABS: Methicillin-Resist S.aureu PCR NOT DETECTED (NOT DETECTED)
--- NOTE | 2024-05-06 14:50 | P.PN_ITS ---
Subjective 2 Subjective: Patient was seen this morning, he tells me that he is starting to develop left foot swelling, at times tingling in the bottom of his foot, has good DP PT pulses good capillary refill, but started develop left foot swelling, Vitals/I&O/Wt Last Vital Signs Temp 97.7 F 05/06/24 11:06 Pulse 72 05/06/24 14:00 Resp 20 H 05/06/24 11:06 BP 154/89 05/06/24 11:06 Pulse Ox 97 05/06/24 11:06 O2 Del Method Room Air 05/06/24 11:06 05/05/24 05/06/24 05/06/24 22:59 06:59 14:59 Intake Total 3050 / 4130 250 / 4380 1800 / 1800 Balance 3050 / 4130 250 / 4380 1800 / 1800 Weight last 48 hrs Weight 84.822 kg Weight 84.958 kg Physical Exam 2 Const: COMMON NORMALS: no acute distress and patient oriented x3 Resp: COMMON NORMALS: normal respiratory effort, No retractions, No use of accessory muscles and clear to auscultation bilaterally AUSCULTATION: clear to auscultation bilaterally Cardio: COMMON NORMALS: regular rate, regular rhythm, S1 normal heart sound present and S2 normal heart sound present RATE: regular rate RHYTHM: r egular rhythm HEART SOUNDS: S1 normal heart sound present and S2 normal heart sound present GI: COMMON NORMALS: Normal to inspection, nondistended, normoactive bowel sounds present and non-tender Extremity: COMMON NORMALS: no pedal edema Neuro: COMMON NORMALS: patient oriented x3 Psych: COMMON NORMALS: mental status grossly normal Skin: NARRATIVE SKIN EXAM: Left calf, area of erythema, drainage, purulence has significantly resolved -Area of erythema has spread down from h is calf, down to the ankle into the forefoot with swelling, erythema, pitting edema -Good DP PT pulses, cap refill less than 2 seconds, no significant mottling no overlying skin changes Data 05/06/24 04:05 05/06/24 04:05 Micro: Microbiology 05/04/24 10:06 Anaerobic Culture - Preliminary Leg - Left Wound Culture - Preliminary 05/05/24 10:22 Anaerobic Culture - Preliminary Leg - Left 05/05/24 10:22 Gram Stain - Final Leg - Left Abscess Culture - Preliminary 05/05/24 01:13 Group A Streptococcus Rapid Screen - Preliminary Throat A&P Assessment and plan (1) SIVLERIO (acute kidney injury): (2) Cellulitis: (3) Bug bite: Plan Left calf -cellulitis, carbuncle, staphylococcal scalded skin syndrome -Now with erythema, swelling spreading down the calf, the heel, to the forefoot without any open drainage in these areas -procal WNL -crp 68.1 -esr 28 -With systemic symptoms -Ultrasound for analysis underlying abscess No abscess noted, venous ultrasound for DVT negative -Continue vancomycin -Continue meropenem -Continue wound care -General Surgery consulted -Infectious disease consulted -CT left lower extremity, CT foot with IV contrast, continue IV fluids Bug bite -With systemic symptoms -CPK WNL -Monitor Bactrim, lisinopril, with SILVERIO -Possible dress syndrome? -Monitor -IV fluids SILVERIO -IV fluids Transaminitis, monitor, GGT, lipase Plan for today spoke to infectious disease, spoke to general surgery, as patient has tingling and paresthesias in the bottom of his foot, will do CT left lower extremity, repeat CPK, sed rate, lactic acid, CRP, follow blood cultures, will consider venous ultrasound based on clinical progress Attestations 2 Medical Necessity Statement*: Patient requires hospitalization for left calf carbuncle, complicated infection Diagnoses SILVERIO (acute kidney injury) N17.9 Cellulitis L03.90 Bug bite W57.XXXA
--- NOTE | 2024-05-06 14:51 | USCV_ITS ---
Cory Mccarthy Age: 53 Gender: M : 1970 Exam Date: 05/06/2024 15:16 Ordering Phys: Ibrahima Ruiz MD Technologist: VEENA [place] [facility] [place]ication: LLE INCREASED SWELLING HISTORY: Lower extremity swelling. Lower extremity pain. PROCEDURES: Venous duplex imaging was performed in only the left lower extremity. The following venous structures were evaluated: common femoral vein, profunda vein, proximal portion of the greater saphenous vein, superficial femoral vein, and the popliteal vein. In addition, the posterior tibial and peroneal trunk were evaluated. Serial compression, augmentation maneuvers, and spectral Doppler flow evaluation were performed. FINDINGS: No evidence of DVT seen in any vessel visualized at this time. CONCLUSIONS No evidence of left lower extremity DVT. Michael Lynn MD (Electronically Signed) Final Date: 06 May 2024 15:52 S
[2024-05-06] MEDS: enoxaparin 40 mg/0.4 mL Syringe SUBCUT (17:20)
--- NOTE | 2024-05-06 18:33 | PM.PN ---
Subjective Subjective: Infectious disease progress note Area over left calf appears to be significantly improving. It is less erythematous, less tender. Extension of pigmentation over left calf appears to be expected along progressive movement. He has in the interim developed left foot swelling. Also complains of intermittent tingling. No gross swelling encountered at the ankle joint. Overall foot and ankle is nontender to palpation. No new lesions encountered. Medications: Reviewed: Yes Vitals/I&O/Wt Last Vital Signs Temp 97.5 F L 05/06/24 16:01 Pulse 74 05/06/24 16:01 Resp 19 H 05/06/24 16:01 BP 144/78 05/06/24 16:01 Pulse Ox 98 05/06/24 16:01 O2 Del Method Room Air 05/06/24 11:06 05/06/24 05/06/24 05/06/24 06:59 14:59 22:59 Intake Total 250 / 4380 1800 / 1800 1610 / 3410 Balance 250 / 4380 1800 / 1800 1610 / 3410 Weight last 48 hrs Weight 84.822 kg Weight 84.958 kg Physical Exam Narrative: General: No acute distress, AO x3 HEENT: PERRLA, pupils bilaterally equal and reactive, pallors not present Chest: Normal vesicular breath sounds, no added sounds, equal good air entry bilaterally CVS: S1-S2 regular, no murmurs, no tachycardia, no gallops, no rubs Abdomen: Soft, nontender, no organomegaly, bowel sounds present Neuro: No focal deficits, no facial deformity, AO x3, power 5/5 in all limbs Extremities: See attached pictures. Patient has a diffuse maculopapular rash affecting bilateral arms, bilateral legs extending from thigh down to feet, more localized carbuncle affecting the left calf, pictures attached. Around the left lateral chest wall there a small scab, possibly treasury representative of the bite johann from unknown arthropod. left calf on 05/05 B/L Legs 05/06 swelling left foot 05/06 left calf 05/06 Data 05/06/24 04:05 05/06/24 04:05 Micro: Microbiology 05/04/24 10:06 Anaerobic Culture - Preliminary Leg - Left Wound Culture - Preliminary 05/05/24 10:22 Anaerobic Culture - Preliminary Leg - Left 05/05/24 10:22 Gram Stain - Final Leg - Left Abscess Culture - Preliminary NO wbcs, no organisms 05/05/24 01:13 Group A Streptococcus Rapid Screen - Preliminary Throat negative MRSA nasal screen : negative NAME: Cory Mccarthy LOC: [facility] U #: [id number] AGE/SX: 53/M ROOM: 250 RE05/03/[address]: Ibrahima Ruiz MD : 1970 BED: 2 DIS: FAX #: STATUS: ADM IN TLOC: Spec #: [id number] Jose: 05/04/24-1006 Status: RES Req #: [id number] Recd: 05/04/24-[address]: Ibrahima Ruiz MD Src: Leg SpDesc: Left Ordered: Anaer, Wound Comments: Comment Aerobic Culture Procedure Result Verified Site Anaerobic Culture Preliminary 05/06/24-1144 NO ANAEROBES ISOLATED ON DAY 2 Anaerobic Culture Preliminary (changed) 05/05/24-1207 NO ANAEROBES ISOLATED ON DAY 1 Wound Culture Preliminary 05/06/24-1038 SCANT SUPERFICIAL SKIN QIANA ON DAY 2 Wound Culture Preliminary (changed) 05/05/24-1251 NO GROWTH AT 18-24 HOURS NAME: Edy Mccarthyjennifer Bruner LOC: [facility] #: [id number] AGE/SX: 53/M ROOM: 250 RE05/03/[address]: Ibrahima Ruiz MD : 1970 BED: 2 DIS: FAX #: STATUS: ADM IN TLOC: Spec #: [id number] Jose: 05/03/24-939 Status: RES Req #: [id number] Recd: 05/03/24-[address]: Varghese Wild DO Src: Blood SpDesc: Ordered: Bcult Procedure Result Verified Site Blood Culture Preliminary 05/04/24 NEGATIVE TO DATE Blood Culture Preliminary (changed) 05/03/24-955 SPECIMEN COLLECTED NAME: FabioCory LOC: [facility] U #: [id number] AGE/SX: 53/M ROOM: 250 RE05/03/[address]: Ibrahima Ruiz MD : 1970 BED: 2 DIS: FAX #: STATUS: ADM IN TLOC: Spec #: [id number] Jose: 05/03/24 Status: RES Req #: [id number] Recd: 05/03/[address]: Varghese Wild DO Src: Blood SpDesc: Ordered: Bcult Procedure Result Verified Site Blood Culture Preliminary 05/04/24 NEGATIVE TO DATE Blood Culture Preliminary (changed) 05/03/24 SPECIMEN COLLECTED Other data: Patient: Cory Mccarthy Unit #: [id number] : 1970 Age/Sex: 53 / M ADM Date: 05/03/24 Loc: [facility] Room/Bed: 250-[address]: Ibrahima Ruiz MD Ordering Provider/Ordering MD: Ibrahima Ruiz MD Date of Service: 05/06/24 Procedure(s): CT lower leg LT w con [id number] Accession Number(s): [id number] Report Number: [id number] WS: [id number] Contrast-enhanced CT LEFT lower leg TECHNIQUE: Contrast-enhanced CT LEFT lower leg with coronal and sagittal reformatted images. CLINICAL INFORMATION: swelling, pain, staph skin infectin a calf COMPARISON: None. DLP: 755.[address] scans at [facility] use at least one of these dose optimization techniques: automated exposure control; mA and/or kV adjustment per patient size (includes targeted exams where dose is matched to clinical indication); or iterative reconstruction. FINDINGS: Subcutaneous edema in the lower leg extending to the foot and ankle with skin thickening. Findings compatible with cellulitis. No evidence of intramuscular abscess. No drainable fluid collections. No evidence of osteomyelitis. CT/CT lower leg LT w con [id number] IMPRESSION: 1. Findings compatible with LEFT lower extremity cellulitis. 2. No evidence of drainable abscess or fluid collection. 3. No evidence of osteomyelitis. Patient: Cory Mccarthy Unit #: [id number] : 1970 Age/Sex: 53 / M ADM Date: 05/03/24 Loc: [facility] Room/Bed: 250-[address]: Ibrahima Ruiz MD Ordering Provider/Ordering MD: Ibrahima Ruiz MD Date of Service: 05/06/24 Procedure(s): CT foot LT w con [id number] Accession Number(s): [id number] Report Number: [id number] WS: [id number] Contrast-enhanced CT LEFT foot TECHNIQUE: with coronal and sagittal reformatted images. CLINICAL INFORMATION: swelling, pain, staph skin infection at calf COMPARISON: None. DLP: 755.[address] scans at [facility] use at least one of these dose optimization techniques: automated exposure control; mA and/or kV adjustment per patient size (includes targeted exams where dose is matched to clinical indication); or iterative reconstruction. FINDINGS: Diffuse skin thickening and subcutaneous edema LEFT lower leg extending to the foot and ankle compatible with cellulitis. No evidence of drainable abscess or fluid collection. No evidence of osteomyelitis. Soft tissue edema worse involving the dorsal mid and forefoot. Normal ankle mortise. Normal medial and lateral malleolus. Normal talar dome. CT/CT foot LT w con [id number] IMPRESSION: 1. Cellulitis with subcutaneous edema and skin thickening involving the foot and ankle 2. No drainable abscess or fluid collection. Patient: Cory Mccarthy Unit #: [id number] : 1970 Age/Sex: 53 / M ADM Date: 05/03/24 Loc: [facility] Room/Bed: 250-[address]: Ibrahima Ruiz MD Ordering Provider/Ordering MD: Ibrahima Ruiz MD Date of Service: 05/06/24 Procedure(s): [place] [address] Accession Number(s): [id number] Report Number: [id number] Cory Mccarthy Age: 53 Gender: M : 1970 Exam Date: 05/06/2024 15:16 Ordering Phys: Ibrahima Ruiz MD Technologist: VEENA [place] [facility] [place]: LLE INCREASED SWELLING HISTORY: Lower extremity swelling. Lower extremity pain. PROCEDURES: Venous duplex imaging was performed in only the left lower extremity. The following venous structures were evaluated: common femoral vein, profunda vein, proximal portion of the greater saphenous vein, superficial femoral vein, and the popliteal vein. In addition, the posterior tibial and peroneal trunk were evaluated. Serial compression, augmentation maneuvers, and spectral Doppler flow evaluation were performed. FINDINGS: No evidence of DVT seen in any vessel visualized at this time. CONCLUSIONS No evidence of left lower extremity DVT. 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 It appears the events may have been incited by an unknown arthropod bite. Thereafter quickly developed a generalized rash which has been worsening during course of the week. Thereafter changes localized over the left calf , appearing to be carbuncle in appearance. No direct trauma or bite at the site of left calf. Possibility of toxin mediated disease such as SSSS less likely drug eruption given that symptoms appear to have predated initiation of Bactrim. No eosinophilia on peripheral labs, less likely dress syndrome. Negative MRSA nasal screen and GAS phayngeal swab skin biopsy if no improvement Appreciate general surgery assessment less likely disseminated herpes/zoster, will consider HSV and VZV PCR from skin lesion if no improvement Interim development of bilateral leg swelling, left worse than right. CT taken today to evaluate for necrotizing fasciitis as cause of increasing swelling, study negative for the same. Overall patient's calf is less tense, less painful, clinically improving Duplex today to evaluate for septic thrombophlebitis, study negative for the same. No obvious swelling or tenderness over the ankle, CT with normal ankle mortise Blood cx negative to date May have potential lymphangitis, on iv abx for the same. Alternate possibility is that of hypervolemia from IV fluids. Encouraged to keep feet propped up during course of the night and encouraged to continue movement at the ankle to displace additional fluid. Discontinue meropenem today Continue IV vancomycin. If continues to show improvement over the course of next 24 hours, plan to switch to oral linezolid 600 mg p.o. twice daily. Will follow Attestations Medical Necessity Statement*: Per admitting. need for iv abx Coding Level of Care Code Acute Code for Chg Fwd Diagnoses Scalded skin syndrome L00 Carbuncle L02.93 Swelling of left foot M79.89
[2024-05-07] VITALS (10 sets, daily range): BP systolic 131–148; BP diastolic 73–95; PULSE 61–104; RESP 16–18; TEMP 36.7–36.9; O2SAT 94–97
[2024-05-07 03:01] LABS: Hematocrit 35.2 % (37-53); Mean Corpuscular HGB Conc 32.7 g/dL (30-55); Mean Corpuscular Hemoglobin 30.4 pg (27-33); Mean Corpuscular Volume 93.1 fl (82-101); Mean Platelet Volume 8.1 fL (7.4-10.4); Platelet Count 358 10^3/cmm (157-399); Red Blood Count 3.78 10^6/uL (3.85-5.65); Red Cell Distribution Width 12.5 % (12.1-15.1); White Blood Count 9.46 10^3/uL (3.29-11.43)
[2024-05-07 03:20] LABS: Vancomycin Trough 15.2 ug/mL (10-15)
[2024-05-07 03:29] LABS: Anion Gap 15.3 (5-19); Blood Urea Nitrogen 16 mg/dL (6-20); Calcium 8.9 mg/dL (8.5-10.5); Carbon Dioxide 25 mmol/L (22-29); Chloride 104 mmol/L (98-107); Creatinine Clr Calc Pharmacy 79.3203; Glucose 100 mg/dL (65-115); Osmolality Calculated 291 mOsm/kg (285-295); Potassium 4.3 mmol/L (3.5-5.1); Sodium 140 mmol/L (136-145)
[2024-05-07] MEDS: vancomycin 1,000 MG in sodium chloride 0.9% 250 ML 250 MG IV ×2 (03:38→16:20)
[2024-05-07 03:39] LABS: Slide Review Slide Review Perform
[2024-05-07 03:40] LABS: Absolute Eosinophils 0.3 10^3/cmm (0.0-0.7); Absolute Neutrophil 6.2 10^3/cmm (1.4-6.5); Absolute Segmented Neutrophil 6.1 10/cmm (1.6-7.1); Band Neutrophils Absolute 0.2 10^3/cmm (0.0-1.2); Eosinophils 3 %; Lymphocytes 20 %; Monocytes Absolute 0.7 10^3/cmm (0.1-0.6); Platelet Estimate Normal (Normal); Segmented Neutrophils 64 %; Total Cells Counted 100 (0-100)
[2024-05-07] MEDS: acetaminophen 325 mg Tablet 650 MG PO ×3 (03:41→20:27)
--- NOTE | 2024-05-07 07:52 | P.PN_ITS ---
Subjective 2 Subjective: Patient doing well, showing good progression of left leg cellulitis, reports less swelling less pain and less erythema. Vitals/I&O/Wt Last Vital Signs Temp 98.2 F 05/07/24 07:30 Pulse 104 H 05/07/24 07:30 Resp 18 05/07/24 07:30 BP 135/86 05/07/24 07:30 Pulse Ox 96 05/07/24 07:30 O2 Del Method Room Air 05/07/24 07:30 05/06/24 05/07/24 05/07/24 22:59 06:59 14:59 Intake Total 1850 / 3650 250 / 3900 Balance 1850 / 3650 250 / 3900 Weight last 48 hrs Weight 180 lb Weight 187 lb Physical Exam 2 Extremity: OTHER: 30 significant improvement of left leg c ellulitis, there is less erythema less warm to touch, superficial wounds appear to be improving, swelling is also improving. Data 05/07/24 02:53 05/07/24 02:53 Micro: Microbiology 05/04/24 10:06 Anaerobic Culture - Preliminary Leg - Left Wound Culture - Preliminary 05/05/24 10:22 Anaerobic Culture - Preliminary Leg - Left 05/05/24 10:22 Gram Stain - Final Leg - Left Abscess Culture - Preliminary 05/05/24 01:13 Group A Streptococcus Rapid Screen - Preliminary Throat A&P Assessment and plan (1) Cellulitis: (2) Swelling of left foot: Plan This is a 53-year-old male who I have been following for cellulitis of the left lower extremity. Cellulitis has been improving, CT scan done yesterday showed evidence of only cellulitis with no evidence of drainable fluid collections. I will continue to monitor the patient on a daily basis while he is in-house. all other management per primary team. Attestations 2 Medical Necessity Statement*: per medical team Coding Level of Care Code Acute Code for [facility] Diagnoses Cellulitis L03.90 Swelling of left foot M79.89
[2024-05-07] MEDS: amlodipine 5 mg Tablet PO (08:31)
[2024-05-07] MEDS: doxycycline 100 mg Tablet PO (08:31)
[2024-05-07] MEDS: mupirocin oint 22 gm 1 APPLIC TOPICAL ×2 (08:40→19:05)
--- NOTE | 2024-05-07 10:49 | P.PN_ITS ---
Subjective 2 Subjective: patient was seen this morning, he reports his leg swelling is improving with elevation, no fever, no chills, no more parasthesia in left leg or feet Vitals/I&O/Wt Last Vital Signs Temp 98.2 F 05/07/24 08:00 Pulse 104 H 05/07/24 08:00 Resp 18 05/07/24 08:00 BP 135/86 05/07/24 08:00 Pulse Ox 96 05/07/24 07:30 O2 Del Method Room Air 05/07/24 07:30 05/06/24 05/07/24 05/07/24 22:59 06:59 14:59 Intake Total 1850 / 3650 250 / 3900 120 / 120 Balance 1850 / 3650 250 / 3900 120 / 120 Weight last 48 hrs Weight 81.647 kg Weight 84.822 kg Physical Exam 2 Const: COMMON NORMALS: no acute distress and patient oriented x3 Resp: COMMON NORMALS: normal respiratory effort, No retractions, No use of accessory muscles and clear to auscultation bilaterally AUSCULTATION: clear to auscultation bilaterally Cardio: COMMON NORMALS: regular rate, regular rhythm, S1 normal heart sound present and S2 normal heart sound present RATE: regular rate RHYTHM: r egular rhythm HEART SOUNDS: S1 normal heart sound present and S2 normal heart sound present GI: COMMON NORMALS: Normal to inspection, nondistended, normoactive bowel sounds present and non-tender Extremity: COMMON NORMALS: no pedal edema NARRATIVE EXTREMITY EXAM: left calf area significantly improved, drainage minimal left foot/left leg swelling, erythema improved Neuro: COMMON NORMALS: patient oriented x3 Psych: COMMON NORMALS: mental status grossly normal Data 05/07/24 02:53 05/07/24 02:53 Micro: Microbiology 05/04/24 10:06 Anaerobic Culture - Preliminary Leg - Left Wound Culture - Preliminary 05/05/24 10:22 Anaerobic Culture - Preliminary Leg - Left 05/05/24 10:22 Gram Stain - Final Leg - Left Abscess Culture - Preliminary 05/05/24 01:13 Group A Streptococcus Rapid Screen - Preliminary Throat A&P Assessment and plan (1) SILVERIO (acute kidney injury): (2) Cellulitis: (3) Bug bite: Plan Left calf -cellulitis, carbuncle, staphylococcal scalded skin syndrome -Now with erythema, swelling spreading down the calf, the heel, to the forefoot without any open drainage in these areas -procal WNL -crp 68.1 -esr 28 -With systemic symptoms -Ultrasound for analysis underlying abscess No abscess noted, venous ultrasound for DVT negative -Continue vancomycin -Continue meropenem -Continue wound care -General Surgery consulted -Infectious disease consulted -CT left lower extremity, CT foot with IV contrast, no acute findings -repeat ultrasound left lower leg negative for dvt Bug bite -With systemic symptoms -left chest site, looks better, -CPK WNL -Monitor Bactrim, lisinopril, with SILVERIO -Possible dress syndrome? -Monitor -IV fluids d/c SILVERIO -IV fluids Transaminitis, monitor, GGT, lipase Plan for today continue leg elevation, continued mobility, vancomycin, spoke to infectious disease might transition to zyvox tonight based on clinical progress Attestations 2 Medical Necessity Statement*: patient requires hospitalization for left calf cellulitis, scalded skin syndrome, requiring iv antibiotics Diagnoses SILVERIO (acute kidney injury) N17.9 Cellulitis L03.90 Bug bite W57.XXXA
[2024-05-07 11:20] LABS: Alanine Aminotransferase 135 U/L (0-41); Albumin Level 4.1 g/dL (3.5-5.2); Alkaline Phosphatase 174 U/L (40-130); Aspartate Amino Transferase 70 U/L (0-40); Globulin 2.7 g/dL (1.3-4.6); Total Bilirubin 0.6 mg/dL (0.15-1.2); Total Protein 6.8 g/dL (6.6-8.7)
--- NOTE | 2024-05-07 14:15 | PHA.VACGOAL ---
Vancomycin Goal - Therapy Day of therpy:: Day []of [] . 4 Actual body weight (kg): 180 lb - Data Labs: WBC 9.46 10^3/uL (3.29-11.43) 05/07/24 02:53 RBC 3.78 10^6/uL (3.85-5.65) L 05/07/24 02:53 Hgb 11.50 g/dL (11.27-16.99) 05/07/24 02:53 Hct 35.2 % (37-53) L 05/07/24 02:53 MCV 93.1 fl (82-101) 05/07/24 02:53 MCH 30.4 pg (27-33) 05/07/24 02:53 MCHC 32.7 g/dL (30-55) 05/07/24 02:53 RDW 12.5 % (12.1-15.1) 05/07/24 02:53 Sodium 140 mmol/L (136-145) 05/07/24 02:53 Potassium 4.3 mmol/L (3.5-5.1) 05/07/24 02:53 Chloride 104 mmol/L (98-107) 05/07/24 02:53 Carbon Dioxide 25 mmol/L (22-29) 05/07/24 02:53 Anion Gap 15.3 (5-19) 05/07/24 02:53 BUN 16 mg/dL (6-20) 05/07/24 02:53 Creatinine 1.1 mg/dL (0.7-1.2) 05/07/24 02:53 GFR Calculation 70.0 mL/min (90-130) L 05/07/24 02:53 Treatment plan:: continue (Trough 15.2)
[2024-05-07] MEDS: pantoprazole 40 mg SDV IVP (14:27)
--- NOTE | 2024-05-07 14:41 | P.PN_ITS ---
Subjective 2 Subjective: Infectious disease progress note His left lower extremity continues to improve. Swelling over foot is improving. No tingling today. Rash over chest wall is additionally improving. Medications: Reviewed: Yes Vitals/I&O/Wt Last Vital Signs Temp 98.0 F 05/07/24 11:21 Pulse 78 05/07/24 11:21 Resp 16 05/07/24 11:21 BP 134/86 05/07/24 11:21 Pulse Ox 97 05/07/24 11:21 O2 Del Method Room Air 05/07/24 11:21 05/06/24 05/07/24 05/07/24 22:59 06:59 14:59 Intake Total 1850 / 3650 250 / 3900 360 / 360 Balance 1850 / 3650 250 / 3900 360 / 360 Weight last 48 hrs Weight 81.647 kg Weight 84.822 kg Physical Exam 2 Narrative: General: No acute distress, AO x3 HEENT: PERRLA, pupils bilaterally equal and reactive, pallors not present Chest: Normal vesicular breath sounds, no added sounds, equal good air entry bilaterally CVS: S1-S2 regular, no murmurs, no tachycardia, no gallops, no rubs Abdomen: Soft, nontender, no organomegaly, bowel sounds present Neuro: No focal deficits, no facial deformity, AO x3, power 5/5 in all limbs Extremities: See attached pictures. Patient has a diffuse maculopapular rash affecting bilateral arms, bilateral legs extending from thigh down to feet, more localized carbuncle affecting the left calf, pictures attached. Around the left lateral chest wall there a small scab, possibly real estate representative of the bite johann from unknown arthropod. 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 It appears the events may have been incited by an unknown arthropod bite. Thereafter quickly developed a generalized rash which has been worsening during course of the week. Thereafter changes localized over the left calf , appearing to be carbuncle in appearance. No direct trauma or bite at the site of left calf. Possibility of toxin mediated disease such as SSSS less likely drug eruption given that symptoms appear to have predated initiation of Bactrim. No eosinophilia on peripheral labs, less likely dress syndrome. Negative MRSA nasal screen and GAS phayngeal swab skin biopsy if no improvement Appreciate general surgery assessment less likely disseminated herpes/zoster, will consider HSV and VZV PCR from skin lesion if no improvement Interim development of bilateral leg swelling, left worse than right. CT taken today to evaluate for necrotizing fasciitis as cause of increasing swelling, study negative for the same. Overall patient's calf is less tense, less painful, clinically improving Duplex today to evaluate for septic thrombophlebitis, study negative for the same. No obvious swelling or tenderness over the ankle, CT with normal ankle mortise Blood cx negative to date May have potential lymphangitis, on iv abx for the same. Alternate possibility is that of hypervolemia from IV fluids. Encouraged to keep feet propped up during course of the night and encouraged to continue movement at the ankle to displace additional fluid. Discontinue meropenem today Continue IV vancomycin. If continues to show improvement over the course of next 24 hours, plan to switch to oral linezolid 600 mg p.o. twice daily. 05/07/24: Plan for today : D/c vancomycin after 4 pm dose today. Transition to oral linezolid and monitor over next 24 hrs. May be stable for discharge if continues to improve by tomorrow Attestations 2 Medical Necessity Statement*: per admitting Coding Level of Care Code Acute Code for Chg Fwd Moderate MDM includes number and complexity of problems actively addressed during encounter, amount and/or complexity of data reviewed/ordered and described risk of complication, morbidity or mortality of management as documented Diagnoses Scalded skin syndrome L00 Carbuncle L02.93 Swelling of left foot M79.89
[2024-05-07] MEDS: enoxaparin 40 mg/0.4 mL Syringe SUBCUT (16:21)
[2024-05-07] MEDS: diphenhydrAMINE 25 mg Capsule PO (16:29)
[2024-05-07] MEDS: ketorolac 30 mg/mL INJ 15 MG IVP (20:28)
[2024-05-08] VITALS: BP 144/84; PULSE 75; RESP 17; TEMP 36.9; O2SAT 99
[2024-05-08 04:00] VITALS: BP 146/88; PULSE 74; RESP 16; TEMP 36.9; O2SAT 98
[2024-05-08] MEDS: linezolid 600 mg Tablet PO ×2 (05:03→16:09)
[2024-05-08 05:29] LABS: Basophils # 0.1 10^3/uL (0.0-0.1); Eosinophils # 0.7 10^3/uL (0.0-0.8); Eosinophils % 7.8 %; Hematocrit 33.9 % (37-53); Lymphocytes # 1.8 10^3/uL (0.8-4.8); Mean Corpuscular HGB Conc 32.7 g/dL (30-55); Mean Corpuscular Hemoglobin 30.2 pg (27-33); Mean Corpuscular Volume 92.4 fl (82-101); Mean Platelet Volume 8.8 fL (7.4-10.4); Monocytes # 0.8 10^3/uL (0.2-0.9); Monocytes % 9.4 %; Neutrophils # 4.77 10^3/uL (1.8-7.7); Neutrophils % 53.2 %; Nucleated Red Blood Cells % 0.2 %; Platelet Count 333 10^3/cmm (157-399); Red Blood Count 3.67 10^6/uL (3.85-5.65); Red Cell Distribution Width 12.6 % (12.1-15.1); White Blood Count 8.96 10^3/uL (3.29-11.43)
[2024-05-08 06:09] LABS: Blood Urea Nitrogen 19 mg/dL (6-20); Calcium 8.5 mg/dL (8.5-10.5); Carbon Dioxide 22 mmol/L (22-29); Chloride 104 mmol/L (98-107); Creatinine Clr Calc Pharmacy 65.9367; Glomerular Filtration Rate 57.7 mL/min (90-130); Glucose 99 mg/dL (65-115); Osmolality Calculated 294 mOsm/kg (285-295); Sodium 141 mmol/L (136-145)
[2024-05-08 06:20] LABS: Hepatitis A Antibody IgM Non-Reactive (Nonreactive); Hepatitis B Core AB, Total Non-Reactive (Nonreactive); Hepatitis B Surface Antigen Non-Reactive (Nonreactive); Hepatitis C Virus Antibody Non-Reactive (Nonreactive)
[2024-05-08 06:21] LABS: Slide Review Slide Review Perform
[2024-05-08 06:23] LABS: Hepatitis B Surface AB > 1000.0 (11.5-1000)
[2024-05-08 07:35] LABS: Fibrinogen Degradation Product <5 mcg/mL (LESS THAN 5)
[2024-05-08 07:49] VITALS: BP 134/80; PULSE 73; RESP 16; TEMP 36.8; O2SAT 96
--- NOTE | 2024-05-08 07:53 | P.PN_ITS ---
Subjective 2 Subjective: 53-year-old male who has been followed b y surgery for a left lower extremity cellulitis. Patient is doing much better no significant complaint swelling and erythema had improved. Vitals/I&O/Wt Last Vital Signs Temp 98.2 F 05/08/24 07:49 Pulse 73 05/08/24 07:49 Resp 16 05/08/24 07:49 BP 134/80 05/08/24 07:49 Pulse Ox 96 05/08/24 07:49 O2 Del Method Room Air 05/08/24 07:49 05/07/24 05/08/24 05/08/24 22:59 06:59 14:59 Intake Total 970 / 1330 480 / 1810 Balance 970 / 1330 480 / 1810 Weight last 48 hrs Weight 192 lb 11.2 oz Weight 180 lb Physical Exam 2 Extremity: OTHER: Improvement of left lower extremity cellulitis there is less swelling and edema there is no separation at this time. Data 05/08/24 04:30 05/08/24 04:30 Micro: Microbiology 05/05/24 10:22 Gram Stain - Final Leg - Left Abscess Culture - Preliminary 05/04/24 10:06 Anaerobic Culture - Preliminary Leg - Left Wound Culture - Final 05/05/24 01:13 Group A Streptococcus Rapid Screen - Final Throat 05/05/24 10:22 Anaerobic Culture - Preliminary Leg - Left A&P Assessment and plan (1) Carbuncle: (2) Cellulitis: Plan Excellent progression of left lower extremity cellulitis with nonoperative management, patient has responded well to antibiotics, crusting of the posterior side of the leg is healing without evidence of further suppuration. No indication for surgical intervention at this time, continue management per primary team. General surgery will sign off and follow-up will be as needed. Attestations 2 Medical Necessity Statement*: Per medical team Coding Level of Care Code Acute Code for [facility] Diagnoses Carbuncle L02.93 Cellulitis L03.90
[2024-05-08] MEDS: amlodipine 5 mg Tablet PO (08:36)
[2024-05-08] MEDS: pantoprazole DR 40 mg Tablet PO (08:36)
[2024-05-08] MEDS: mupirocin oint 22 gm 1 APPLIC TOPICAL (08:41)
[2024-05-08 09:28] LABS: Erythrocyte Sedimentation Rate 25 mm/hr (0-10)
[2024-05-08 09:39] LABS: Alanine Aminotransferase 157 U/L (0-41); Albumin Level 3.8 g/dL (3.5-5.2); Alkaline Phosphatase 177 U/L (40-130); Aspartate Amino Transferase 95 U/L (0-40); C Reactive Protein 49.3 mg/L (0.0-4.9); Ferritin 997 ng/mL (30-400); Globulin 2.7 g/dL (1.3-4.6); Total Bilirubin 0.5 mg/dL (0.15-1.2); Total Protein 6.5 g/dL (6.6-8.7)
[2024-05-08] MEDS: ketorolac 30 mg/mL INJ 15 MG IVP (09:59)
[2024-05-08] MEDS: acetaminophen 325 mg Tablet 650 MG PO (10:00)
[2024-05-08 10:04] LABS: HIV 1 & 2 Antibody Non-Reactive (Non-Reactiv); HIV 1 & 2 Antigen Non-Reactive (Non-Reactiv)
[2024-05-08] MEDS: methylPREDNISolone sod succ 125 mg/2 mL INJ IVP (11:37)
[2024-05-08 11:39] VITALS: BP 117/73; PULSE 74; RESP 17; TEMP 37; O2SAT 96
--- NOTE | 2024-05-08 12:30 | PM.DCS ---
Discharge Providers Date of Admission: 05/03/24 10:34 Date of Discharge: May 08, 2024 Attending Provider at Admission: Ibrahima Ruiz MD Attending Provider at Discharge: Ibrahima Ruiz MD Primary Care Provider: VIKY Hartmann Diagnoses at Discharge Discharge Diagnosis (1) Carbuncle: Status: Acute (2) Cellulitis: Status: Acute Reason for Visit Reason for Visit: insect bite infection Hospital Course Hospital Course Cory Mccarthy is a 53 year old male with a past medical history of hypertension, hyperlipidemia,, GERD, who presents [facility] for a rash, pain, after spider bite. Patient tells me that earlier on this week, he had a bug bite, on his left chest/flank, it was erythematous, had slight drainage, so he presented to his walk-in clinic and was placed on Bactrim. He tells me that the rash was pruritic painful, burning. But the rash on his left lateral chest mostly has resolved, but now what he is developed is more than diffuse disseminated rash, on his abdomen, on his back, bilateral legs,. Over the last 24 hours he has developed a dense rash, with erythema, swelling, tenderness, over his left calf. Denies any recent injuries to his left calf. No recent travel. He is not exactly sure which bug bit him, he is not sure if if it was a brown recluse spider bite or a black spider, or a tick bite. Does report fatigue, malaise, chills, diffuse pain Patient presented [facility], left calf, area of cellulitis, carbuncle, concerns for staphylococcal scalded skin syndrome, managed with broad-spectrum antibiotic therapy, infectious disease was consulted, recommended continued broad-spectrum antibiotic therapy, general surgery was consulted for consideration of possible incision and drainage, they recommended wound care and medical management. Patient was monitored as inpatient, left calf area of cellulitis, carbuncle started to develop pustular lesions at all drained, and have since scarred over. No more significant open drainage areas on the left calf, wound cultures have been unremarkable so far, blood cultures no growth so far. Patient will be discharged with wound care, keep dry dressing changes, topical mupirocin, complete 13 days of p.o. Zyvox Patient during his hospitalization did develop swelling of his left leg, down to his foot, requiring further imaging including CT of left lower extremity CT of his foot, that did not reveal any significant evidence of osteomyelitis or underlying abscess or deep tissue infection. Repeat ultrasound was also negative for DVT. His swelling improved with leg elevation and mobility, continue leg elevation mobility on discharge For his bug bite, on his left chest, no open drainage, does have some surrounding erythema but significantly improved. He can use topical mupirocin over this area Patient has developed intermittent appearing rashes, on his flexor surfaces bilateral knees, bilateral elbows, over his chest and his abdomen, macular papular, pruritic at times, blanching. ESR 25, ferritin 997, AST 95, ALT 157, GGT 478, CRP 49.3. Patient has some degree of systemic symptoms associated with new rash findings. These new rashes are not pustular, no active drainage. Differential for this rash --includes exanthematous pustulosis, would recommend steroid taper, and topical clobetasol -With his elevated inflammatory markers the other thought would be adult onset stills disease, lupus, will have him follow-up with primary care as outpatient, rheumatological workup has also been ordered, will also refer him to rheumatology Physical Exam Const: COMMON NORMALS: no acute distress and patient oriented x3 Resp: COMMON NORMALS: normal respiratory effort, No retractions, No use of accessory muscles and clear to auscultation bilaterally AUSCULTATION: clear to auscultation bilaterally Cardio: COMMON NORMALS: regular rate, regular rhythm, S1 normal heart sound present and S2 normal heart sound present RATE: regular rate RHYTHM: regular rhythm HEART SOUNDS: S1 normal heart sound present and S2 normal heart sound present GI: COMMON NORMALS: Normal to inspection, nondistended, normoactive bowel sounds present and non-tender Extremity: COMMON NORMALS: no pedal edema Neuro: COMMON NORMALS: patient oriented x3 Psych: COMMON NORMALS: mental status grossly normal Discharge Data Studies Completed and Pending Completed Studies During Hospitalization Category Date Time Status CT foot LT w con [id number] Routine Cat Scan 05/06/24 09:[address] lower leg LT w con [id number] Routine Cat Scan 05/06/24 09:18 [place] [id number] Stat Ultrasound 05/06/24 14:51 Completed US soft tissue/extremity [id number] Routine Ultrasound 05/03/24 12:11 Completed US venous duplex lower extremity LT [CV venous duplex Ultrasound 05/03/24 11:03 [place] [id number]] Stat Pending at discharge Category Date Time Status DICKSON Profile Rheumatology Stat Lab 05/08/24 12:03 Received Anaerobic Culture Routine Lab 05/04/24 10:06 Results Anaerobic Culture Stat Lab 05/04/24 10:17 Results Francisella tularensis IgM/IgG Routine Lab 05/03/24 04:05 Received Lymes Ab IgG/IgM ref WB [Lymes Western Blot] Stat Lab 05/03/24 17:24 Results TIBC [Total Iron Binding Capacity] Routine Lab 05/08/24 04:30 Received Tick Panel Stat Lab 05/03/24 04:05 Results Transferrin Routine Lab 05/08/24 04:30 Received Wound Culture Routine Lab 05/04/24 10:06 Results Radiology Impressions Soft Tissue Ultrasound 05/03/24 12:11 IMPRESSION: No abscess noted Foot CT 05/06/24 09:18 IMPRESSION: 1. Cellulitis with subcutaneous edema and skin thickening involving the foot and ankle 2. No drainable abscess or fluid collection. Lower Extremity CT 05/06/24 09:18 IMPRESSION: 1. Findings compatible with LEFT lower extremity cellulitis. 2. No evidence of drainable abscess or fluid collection. 3. No evidence of osteomyelitis. Laboratory Results WBC 8.96 10^3/uL (3.29-11.43) 05/08/24 04:30 RBC 3.67 10^6/uL (3.85-5.65) L 05/08/24 04:30 Hgb 11.10 g/dL (11.27-16.99) L 05/08/24 04:30 Hct 33.9 % (37-53) L 05/08/24 04:30 MCV 92.4 fl (82-101) 05/08/24 04:30 MCH 30.2 pg (27-33) 05/08/24 04:30 MCHC 32.7 g/dL (30-55) 05/08/24 04:30 RDW 12.6 % (12.1-15.1) 05/08/24 04:30 Plt Count 333 10^3/cmm (157-399) 05/08/24 04:30 MPV 8.8 fL (7.4-10.4) 05/08/24 04:30 Neut % (Auto) 53.2 % 05/08/24 04:30 Lymph % (Auto) 20.0 % 05/08/24 04:30 [place] % (Auto) 9.4 % 05/08/24 04:30 Eos % (Auto) 7.8 % 05/08/24 04:30 Baso % (Auto) 1.0 % 05/08/24 04:30 Neut # (Auto) 4.77 10^3/uL (1.8-7.7) 05/08/24 04:30 Lymph # (Auto) 1.8 10^3/uL (0.8-4.8) 05/08/24 04:30 [place] # (Auto) 0.8 10^3/uL (0.2-0.9) 05/08/24 04:30 Eos # (Auto) 0.7 10^3/uL (0.0-0.8) 05/08/24 04:30 Baso # (Auto) 0.1 10^3/uL (0.0-0.1) 05/08/24 04:30 Nucleated RBC % (auto) 0.2 % 05/08/24 04:30 Total Counted 100 (0-100) 05/07/24 02:53 Atypical Lymphs % Not Reportable 05/07/24 02:53 Absolute Neutrophils 6.2 10^3/cmm (1.4-6.5) 05/07/24 02:53 Segmented Neutrophils 64 % 05/07/24 02:53 Abs Segm Neuts (Man) 6.1 10/cmm (1.6-7.1) 05/07/24 02:53 Band Neutrophils 2.0 % 05/07/24 02:53 Abs Band Neuts (Man) 0.2 10^3/cmm (0.0-1.2) 05/07/24 02:53 Lymphocytes (Manual) 20 % 05/07/24 02:53 Monocytes (Manual) 7.0 % 05/07/24 02:53 Absolute Monocytes 0.7 10^3/cmm (0.1-0.6) H 05/07/24 02:53 Eosinophils (Manual) 3 % 05/07/24 02:53 Absolute Eosinophils 0.3 10^3/cmm (0.0-0.7) 05/07/24 02:53 Basophils (Manual) 0.0 % 05/07/24 02:53 Absolute Basophils 0.0 10^3/cmm (0.0-0.2) 05/07/24 02:53 Metamyelocytes 2.0 % 05/07/24 02:53 Myelocytes 2.0 % 05/07/24 02:53 Nucleated RBCs # 0.0 /100WBC 05/08/24 04:30 Platelet Estimate Normal (Normal) 05/07/24 02:53 ESR 25 mm/hr (0-10) H 05/08/24 04:30 PT 12.70 SECONDS (12.1-14.9) 05/03/24 17:24 INR 0.93 (0.8-1.2) 05/03/24 17:24 APTT 29.3 SECONDS (23.9-36.7) 05/03/24 17:24 Fibrinogen 759 mg/dL (174-498) H 05/03/24 17:24 Fibrin Degrad Products <5 mcg/mL (LESS THAN 5) 05/03/24 17:30 D-Dimer 0.94 ug/mLFEU (0-0.59) H 05/03/24 17:24 Sodium 141 mmol/L (136-145) 05/08/24 04:30 Potassium 4.0 mmol/L (3.5-5.1) 05/08/24 04:30 Chloride 104 mmol/L (98-107) 05/08/24 04:30 Carbon Dioxide 22 mmol/L (22-29) 05/08/24 04:30 Anion Gap 19.0 (5-19) 05/08/24 04:30 BUN 19 mg/dL (6-20) 05/08/24 04:30 Creatinine 1.3 mg/dL (0.7-1.2) H 05/08/24 04:30 GFR Calculation 57.7 mL/min (90-130) L 05/08/24 04:30 Glucose 99 mg/dL (65-115) 05/08/24 04:30 Estimat Average Glucose 108 05/03/24 09:40 Hemoglobin A1c 5.4 % (4.0-6.0) 05/03/24 09:40 Calculated Osmolality 294 mOsm/kg (285-295) 05/08/24 04:30 Lactic Acid 1.8 mmol/L (0.5-2.2) 05/06/24 09:49 Calcium 8.5 mg/dL (8.5-10.5) 05/08/24 04:30 Ferritin 997 ng/mL (30-400) H 05/08/24 04:30 Total Bilirubin 0.5 mg/dL (0.15-1.2) 05/08/24 04:30 Direct Bilirubin 0.20 mg/dL (0.00-0.30) 05/08/24 04:30 GGT 478 U/L (8-61) H 05/03/24 09:40 AST 95 U/L (0-40) H 05/08/24 04:30 ALT 157 U/L (0-41) H 05/08/24 04:30 Alkaline Phosphatase 177 U/L (40-130) H 05/08/24 04:30 Creatine Kinase 128 U/L (39-308) 05/06/24 04:05 C-Reactive Protein 49.3 mg/L (0.0-4.9) H 05/08/24 04:30 Total Protein 6.5 g/dL (6.6-8.7) L 05/08/24 04:30 Albumin 3.8 g/dL (3.5-5.2) 05/08/24 04:30 Globulin 2.7 g/dL (1.3-4.6) 05/08/24 04:30 Lipase 99 U/L (13-60) H 05/03/24 09:40 Procalcitonin 0.18 ng/mL (0-0.5) 05/04/24 04:05 TSH 1.33 uIU/mL (0.27-4.20) 05/03/24 09:40 Vancomycin Trough 15.2 ug/mL (10-15) H 05/07/24 02:53 IgA 186 mg/dL (70-400) 05/03/24 09:40 Rheumatoid Factor 10.0 IU/mL (0-14) 05/08/24 04:30 Lyme Ab (Western Blot) <0.90 index 05/03/24 04:05 Lyme IgG (Western Blot 2) <0.90 index 05/03/24 17:24 Hepatitis A IgM Ab Non-reactive (Nonreactive) 05/08/24 04:30 Hep Bs Antigen Non-reactive (Nonreactive) 05/08/24 04:30 Hep Bs Antibody > 1000.0 (11.5-1000) H 05/08/24 04:30 Hep B Core Total Ab Non-reactive (Nonreactive) 05/08/24 04:30 Hepatitis C Antibody Non-reactive (Nonreactive) 05/08/24 04:30 HIV 1&2 Ab & HIV 1 Ag Non-reactive (Non-Reactiv) 05/08/24 04:30 HIV 1&2 Antibody Non-reactive (Non-Reactiv) 05/08/24 04:30 MRSA (PCR) Not detected (NOT DETECTED) 05/05/24 01:13 Vitals Last Vital Signs Temp 98.6 F 05/08/24 11:39 Pulse 74 05/08/24 11:39 Resp 17 05/08/24 11:39 BP 117/73 05/08/24 11:39 Pulse Ox 96 05/08/24 11:39 O2 Del Method Room Air 05/08/24 11:39 Discharge Plan Discharge Patient Disposition: Home Condition: Stable Prescriptions: New mupirocin 2 % Ointment 1 applic topical BID 7 Days Qty: 50 0RF Rx Instructions: over L calf linezolid 600 mg Tablet 600 mg PO Q12H 13 Days Qty: 26 0RF prednisone 20 mg tablet 20 mg PO BID 5 Days Qty: 10 0RF clobetasol 0.05 % cream 1 applic topical DAILY 7 Days Qty: 60 0RF Rx Instructions: donot put on open draining sore, only on pruritic rash Continued atorvastatin 40 mg Tablet 40 mg PO DAILY omeprazole 20 mg Capsule,Delayed Release(Dr/Ec) 20 mg PO DAILY Changed amlodipine 5 mg Tablet 10 mg PO DAILY 30 Days Qty: 60 0RF Discontinued lisinopril 40 mg Tablet 40 mg PO DAILY Bactrim DS 800-160 mg Tablet 1 tab PO BID Discharge Orders: Discharge Order (Routine); Ordered 05/08/24 Ordered By: Ibrahima Ruiz Referrals: Jackie Walker FNP [Primary Care Provider] - 05/15/24 9:40 am Casitllo Carnes MD [Physician] - 1 month Discharge Diet: Cardiac Discharge Activity: Resume usual activity Patient Instructions: Opioid Safety Activity Restrictions/Additional Instructions: - Follow-up with the left calf rash, please use topical mupirocin twice daily, and can use it for open draining sores -Try to keep open sores clean and dry, wet to dry dressings, and then place topical mupirocin with dry dressing -For the itchy/red rash you can use topical clobetasol -Use antibiotics as prescribed -Steroids as prescribed Discharge Attestations Time Spent in Discharge Care*: greater than 30 min Quality Metrics Clinical Quality Measures [ No reported AMI, CVA or VTE this stay] Coding Level of Care Code 22116 Total time (in minutes) for Discharge: 45 Diagnoses Carbuncle L02.93 Cellulitis L03.90
[2024-05-08 12:51] LABS: Iron 60 ug/dL (59-158); Percent Saturation 24.4 % (20-50); Total Iron Binding Capacity 245 mcg/dl; Transferrin 209 mg/dL (200-360); Unsaturated Iron Binding 185 ug/dL (112-347)
--- NOTE | 2024-05-08 13:32 | PM.PN ---
Vitals/I&O/Wt Last Vital Signs Temp 98.6 F 05/08/24 11:39 Pulse 74 05/08/24 11:39 Resp 17 05/08/24 11:39 BP 117/73 05/08/24 11:39 Pulse Ox 96 05/08/24 11:39 O2 Del Method Room Air 05/08/24 11:39 05/07/24 05/08/24 05/08/24 22:59 06:59 14:59 Intake Total 970 / 1330 480 / 1810 240 / 240 Balance 970 / 1330 480 / 1810 240 / 240 Weight last 48 hrs Weight 87.407 kg Weight 81.647 kg Data 05/08/24 04:30 05/08/24 04:30 Micro: Microbiology 05/05/24 10:22 Gram Stain - Final Leg - Left Abscess Culture - Final 05/04/24 10:06 Anaerobic Culture - Preliminary Leg - Left Wound Culture - Final 05/05/24 10:22 Anaerobic Culture - Preliminary Leg - Left 05/03/24 09:40 Blood Culture - Final Blood NO GROWTH AFTER 5 DAYS 05/03/24 09:40 Blood Culture - Final Blood NO GROWTH AFTER 5 DAYS 05/05/24 01:13 Group A Streptococcus Rapid Screen - Final Throat Coding Level of Care Code Acute Code for Chg Fwd
[2024-05-08 16:06] LABS: Adenovirus Not Detected (NOT DETECT); Chlamydia Pneumoniae Not Detected (NOT DETECT); Coronavirus 229E,HKU1,NL63,OC4 Not Detected (NOT DETECT); Human Metapneumovirus Not Detected (NOT DETECT); Human Rhinovirus/Enterovirus Not Detected (NOT DETECT); Influenza A Not Detected (NOT DETECT); Influenza A H1 Not Detected (NOT DETECT); Influenza A H1-2009 Not Detected (NOT DETECT); Influenza A H3 Not Detected (NOT DETECT); Influenza B Not Detected (NOT DETECT); Mycoplasma Pneumoniae Not Detected (NOT DETECT); Parainfluenza Virus Type 1 Not Detected (NOT DETECT); Parainfluenza Virus Type 2 Not Detected (NOT DETECT); Parainfluenza Virus Type 3 Not Detected (NOT DETECT); Parainfluenza Virus Type 4 Not Detected (NOT DETECT); Respiratory Syncytial Virus A Not Detected (NOT DETECT); Respiratory Syncytial Virus B Not Detected (NOT DETECT); SARS-COV-2 Not Detected (NOT DETECT)
[2024-05-08] MEDS: lidocaine 1% INJ 10 mL (per mL) INTRADERMA (18:11)
[2024-05-08 18:29] VITALS: BP 117/73; PULSE 74; RESP 17; TEMP 37; O2SAT 96
--- NOTE | 2024-05-08 19:21 | PM.OP ---
Operative Report Date of procedure: May 08, 2024 Pre-op diagnosis: skin rash Post-op diagnosis: same Procedure done: Biopsy skin x2 left flank area by 2 mm punch and excisional biopsy 4mm Pathology: skin biopsy x2 trunk Surgeon: Berry Sheth MD Anesthesia: Local Brief History: Patient with nsect bite leading to maculopapular rash throughout body in patches Procedure: Left flank area in skin was prepped and draped and anesthetized with 1% lidocaine then 2 mm punch was used to biopsy skin. Resulting specimen was about 1 mm and very tiny so it was decided to take ellipse of skin at site about 4mm in size and both specimens sent to path in single formalin container. Site was closed with interrupted 5-0 prolene x2 and aseptically dressed.
--- NOTE | 2024-05-08 19:26 | P.CONIM_ITS ---
Providers/Reason For Consult 2 Consulting Physician/Specialty*: Shay Sheth MD general surgery Reason for Consult*: skin biopsy Requesting Physician: MD Sara hospitalist. Attending Physician: Ibrahima Ruiz MD Primary Care Provider: VIKY Hartmann History of Present Illness History of Present Illness Cory Mccarthy is a 53 year old male with insect bite which led to patchy maculopapular rash around body particularly severe in left calf area. He is not on blood thinner and not allergic to local but penicillins. Hospitalist and infectious disease suggest skin biopsy to help with diagnosis. Review of Systems 2 Narrative: Constitutional: denies rigors, singnificant weight gain, increased appetite HEENT: denies chronic cough, blurry vision, excessive tearing, eye pain, flashing lights, odynophagia, painful mastication, change in voice, change in taste, chronic sore throat, hypersalivation Heart: denies racing heart, palpitations, othropnea, PND Lungs: denies hemoptysis, pain with deep inspiration, chronic bronchitis GI: denies hematemesis, hematochezia, dysphagia, tenesmus : denies polyuria, hematuria, painful micturation Musculoskeletal: denies hemarthrosis, Muscle wasting, change in amubation Neuro: denies new onset syncope, dysesthesia, dysequilibrium, ptosis eyelid or face SKin: denies new onset hyperalgia, new onset of maculopapular rash new cyanosis Endocrine: denies new polyuria, polydipsia, polyphagia, heat intolerance, excessive energy Hem/Onc: denies new petechiae, swollen glands, new excessive epstaxis Psych: denies racing thought Medications/Allergies Home Medications Medication Instructions Recorded Confirmed Last Taken Type atorvastatin 40 mg tablet 40 mg PO DAILY 05/03/24 05/03/24 Unknown History omeprazole 20 mg capsule,delayed 20 mg PO DAILY 05/03/24 05/03/24 Unknown History release amlodipine 5 mg tablet 10 mg (2 x 5 mg) PO DAILY 30 days 05/08/24 05/03/24 Unknown Rx #60 tabs clobetasol 0.05 % topical cream 1 applic topical DAILY 1 week #60 05/08/24 Unknown Rx grams linezolid 600 mg tablet 600 mg PO BID 10 days #20 tabs 05/08/24 Unknown Rx mupirocin 2 % topical ointment 1 applic topical BID 7 days #50 05/08/24 Unknown Rx grams prednisone 20 mg tablet 20 mg PO BID 5 days #10 tabs 05/08/24 Unknown Rx Allergies Allergy/AdvReac Type Severity Reaction Status Date / Time Penicillins Allergy ALGY-Hives Verified 05/03/24 09:36 Vitals/I&O/Wt Last Vital Signs Temp 98.6 F 05/08/24 18:29 Pulse 74 05/08/24 18:29 Resp 17 05/08/24 18:29 BP 117/73 05/08/24 18:29 Pulse Ox 96 05/08/24 18:29 O2 Del Method Room Air 05/08/24 11:39 05/08/24 05/08/24 05/08/24 06:59 14:59 22:59 Intake Total 480 / 1810 240 / 240 Balance 480 / 1810 240 / 240 Weight last 48 hrs Weight 192 lb 11.2 oz Weight 180 lb Physical Exam 2 Narrative: Patient is a well developed well nourished and in NAD and is afebrile with vitals stable and is answering questions appropriately with a normal affect and is alert and oriented x3 HEENT: normocephalic with normal external ears and nonicteric, oral mucosa moist and dentition normal for age, trachea midline with no large masses visualized Heart: RRR, no gallops murmurs or rubs, normal PMI with no thrills Lungs: normal excursions, no loud audible wheezing, no subcutaneous emphysema Abdomen: nondistended, no gross hepatosplenomegaly, no masses, no rigidity or rebound, no loud borborygmi Neuro: nonfocal, KUMARI, grossly normal sensation Musculoskeletal: good muscle tone, no fasciculations, normal gait Skin: pink warm and dry with new maculopapaular patchy rashes Vascular: good radial pulses, no ulceration, less than 2 second capillary refill in hand : deferred Data 05/08/24 04:30 05/08/24 04:30 Micro: Microbiology 05/05/24 10:22 Gram Stain - Final Leg - Left Abscess Culture - Final 05/04/24 10:06 Anaerobic Culture - Preliminary Leg - Left Wound Culture - Final 05/05/24 10:22 Anaerobic Culture - Preliminary Leg - Left 05/03/24 09:40 Blood Culture - Final Blood NO GROWTH AFTER 5 DAYS 05/03/24 09:40 Blood Culture - Final Blood NO GROWTH AFTER 5 DAYS A&P Assessment and plan (1) Rash: Plan Patient has agreed to biopsy of skin. He understands risks benefits and alternatives. Risks include bleeding, infection, cardiopulmonay problems, poor cosmesis, more surgery. Rash on left flank will be biopsied under local by bedside. RTC in 10 days to return sutures. Path will be sent for permanent sections with specimen in formalin. Coding Level of Care Code 68940 Diagnoses Rash R21
[2024-05-08 22:30] LABS: F.tularensis IgG AB Serum Negative (Negative); F.tularensis IgM AB Serum Negative (Negative)
[2024-05-09 13:35] LABS: COMPLEMENT, TOTAL (CH50) 59 U/mL (31-60)
[2024-05-09 13:45] LABS: CENTROMERE B ANTIBODY <1.0 NEG AI (<1.0 NEG); JO-1 ANTIBODY <1.0 NEG AI (<1.0 NEG); RNP ANTIBODY <1.0 NEG AI (<1.0 NEG); SCL-70 ANTIBODY <1.0 NEG AI (<1.0 NEG); SJOGREN'S ANTIBODY (SS-A) <1.0 NEG AI (<1.0 NEG); SM ANTIBODY <1.0 NEG AI (<1.0 NEG); SS-B <1.0 NEG AI (<1.0 NEG)
[2024-05-09 15:50] LABS: RMSF IGG NOT DETECTED; RMSF IGM NOT DETECTED
[2024-05-09 16:04] LABS: ANA SCREEN, IFA NEGATIVE (NEGATIVE)
[2024-05-09 17:15] LABS: E. Chaffeensis AB IGG <1:64; E. Chaffeensis AB IGM <1:20
[2024-05-09 17:15] LABS: COMPLEMENT COMPONENT C3C 172 mg/dL (82-185); COMPLEMENT COMPONENT C4C 22 mg/dL (15-53)
[2024-05-12 10:38] LABS: THYROID PEROXIDASE ANTIBODIES 7 IU/mL (<9)
[2024-05-14 10:50] LABS: DNA AB (DS) CRITHIDIA,IFA NEGATIVE (NEGATIVE)
== END 2024-05-08 18:30 | disposition home or self-care (01) | DRG 603 ==
LOC: ER 10:28 → MEDSURG 11:03
PROVIDERS: Student in an Organized Health Care Education/Training Program; Admitting Provider Family Medicine; Emergency Provider Family Medicine; PCP Nurse Practitioner Family; Visit Provider Family Medicine
DX: L03.116 Cellulitis of left lower limb (principal); N17.9 Acute kidney failure, unspecified; S80.862A Insect bite (nonvenomous), left lower leg, initial encounter; I10 Essential (primary) hypertension; E78.5 Hyperlipidemia, unspecified; K21.9 Gastro-esophageal reflux disease without esophagitis; L00 Staphylococcal scalded skin syndrome; Z11.52 Encounter for screening for COVID-19
CPT/HCPCS: 36415; 73701; 76882; 80048; 80053; 80076; 80202; 82550; 82728; 82784; 82977; 83036; 83540; 83550; 83605; 83690; 84145; 84443; 84466; 85007; 85025; 85362; 85378; 85384; 85610; 85651; 85730; 86140; 86160; 86162; 86235; 86255; 86376; 86431; 86617; 86618; 86666; 86668; 86705; 86706; 86709; 86757; 86803; 87040; 87070; 87075; 87081; 87205; 87340; 87486; 87581; 87633; 87641; 87806; 88305; 88312; 93971; 96365; 96372; 99285; J1650; J1885; J2185; J2470; J2919; J3370; J7030; J7050; Q3014; Q9967

== ENCOUNTER 2024-05-14 11:51 | Outpatient (CLI) | payer OTHER, MEDICAID, SELFPAY ==
[2024-05-14 12:50] LABS: Basophils % 0.3 %; Lymphocytes # 0.7 10^3/uL (0.8-4.8); Lymphocytes % 5.7 %; Mean Corpuscular HGB Conc 32.9 g/dL (30-55); Mean Corpuscular Hemoglobin 30.9 pg (27-33); Mean Corpuscular Volume 94.2 fl (82-101); Mean Platelet Volume 8.6 fL (7.4-10.4); Monocytes # 0.4 10^3/uL (0.2-0.9); Monocytes % 3.3 %; Neutrophils # 10.46 10^3/uL (1.8-7.7); Neutrophils % 87.8 %; Nucleated Red Blood Cells % 0 %; Platelet Count 422 10^3/cmm (157-399); Red Blood Count 4.46 10^6/uL (3.85-5.65); Red Cell Distribution Width 12.9 % (12.1-15.1); White Blood Count 11.91 10^3/uL (3.29-11.43)
[2024-05-14 13:23] LABS: Alanine Aminotransferase 110 U/L (0-41); Albumin Level 4.4 g/dL (3.5-5.2); Alkaline Phosphatase 133 U/L (40-130); Anion Gap 18.7 (5-19); Aspartate Amino Transferase 36 U/L (0-40); Blood Urea Nitrogen 32 mg/dL (6-20); Carbon Dioxide 21 mmol/L (22-29); Chloride 104 mmol/L (98-107); Globulin 3.1 g/dL (1.3-4.6); Glucose 136 mg/dL (65-115); Osmolality Calculated 297 mOsm/kg (285-295); Potassium 4.7 mmol/L (3.5-5.1); Sodium 139 mmol/L (136-145); Total Bilirubin 0.7 mg/dL (0.15-1.2); Total Protein 7.5 g/dL (6.6-8.7)
== END 2024-05-14 11:52 | disposition home or self-care (01) ==
LOC: LAB 11:52
PROVIDERS: PCP Nurse Practitioner Family; Visit Provider Student in an Organized Health Care Education/Training Program
DX: N17.9 Acute kidney failure, unspecified (principal); L03.90 Cellulitis, unspecified; L00 Staphylococcal scalded skin syndrome
CPT/HCPCS: 36415; 80053; 85025